=== PATIENT | male | born 1960 | race Caucasian/White ===

== ENCOUNTER 2018-04-07 08:44 | Outpatient (CLI) | payer MEDICARE ==
[2018-04-07] MEDS ORDERED: Lidocaine 2% Jelly 5 ML TUBE ONE (16:05)
[2018-04-07] MEDS ORDERED: Sodium Chloride 0.9% 15 ML NEB ONE (16:05)
--- NOTE | 2018-04-07 16:20 | HP ---
DATE OF SERVICE: 04/07/2018. HISTORY OF PRESENT ILLNESS: Mr. Beni Aviles is a very pleasant 57-year-old gentleman who present s to the Wound Center for evaluation of a venous ulceration of the left medial lower leg. The patien t states that he first experienced a venous ulceration of his left medial lower leg 4 years ago. He states that he was treated for this ulceration at a Wound Center in [place] with an Unna boot. He s tates that treatment with the Unna boot was successful and that he returned to work. He states that because of recurrent deep venous thromboses of the left lower extremity, he was forced out of work. He states that from February to April of last year, he was treated by in [place] for a recurre nt ulceration of the left medial lower leg. He states that again the venous ulceration of his left m edial lower leg healed with treatment with an Unna boot. The patient was referred to the Wound [facility] by Dr. Beni Gallagher. Apparently, the ulceration of the left medial lower leg recurred in 09/2017 and the patient has been wrapping the ulceration with gauze. PAST MEDICAL HISTORY: 1. COPD. 2. 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 3. Arthritis. 4. Hypothyroidism. PAST SURGICAL HISTORY: 1. Appendectomy. 2. Tonsillectomy. 3. Left upper extremity surgery for fracture. 4. Left ankle reconstruction. MEDICATIONS: 1. Cymbalta. 2. Remeron. 3. Duloxetine. 4. Levothyroxine. 5. Prilosec. 6. Seroquel. 7. Crestor. 8. Warfarin. 9. Vitamin D. ALLERGIES: No known diagnosed allergies. SOCIAL HISTORY: Social history is significant for tobacco use of 1/2 pack of cigarettes per day for 20 years. The patient admits to the occasional consumption of alcohol. FAMILY HISTORY: Family history is negative for diabetes mellitus or coronary artery disease. PHYSICAL EXAMINATION: VITAL SIGNS: Temperature 97.6, pulse 87, respirations 19, blood pressure 178/110. GENERAL: A 57-year-old gentleman lying on table in examination room in no acute distress. HEENT: Normocephalic, atraumatic. NECK: No nuchal rigidity. CHEST: Clear to auscultation. CARDIOVASCULAR: Regular rate and rhythm. ABDOMEN: Soft. EXTREMITIES: An ulceration of the left medial lower leg is present, which measures approximately 4.8 x 2.2 cm. Very little granulation tissue is present within the wound margins. Necrotic and nonviab le tissue present within the wound margins was debrided with an excisional full-thickness debridement with the use of a curette. No purulent drainage is associated with the wound. No erythema of the s kin surrounding the wound is present. No maceration of the skin of the periwound is noted. A dorsal is pedis pulse is palpable on the left. No significant edema of the left foot or lower leg is presen t on exam today. Discoloration of the skin of the left lower leg is present secondary to hemosiderin deposition. NEUROLOGIC: Grossly nonfocal. ASSESSMENT AND PLAN: 1. Chronic venous hypertension with ulceration. Silverlon, Webril, and the 3M Coban 2-layer arianne moni system will be applied to the ulceration today. No antibiotics will be prescribed based upon th e appearance of the wound. I will see Mr. Aviles again in one week. The patient understands and is in agreement with the preceding treatment plan. He states he will keep his wrap clean and dry until his followup visit 1 week from today. 2. Chronic obstructive pulmonary disease. 3. 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 The patient states he has b een treated for deep venous thrombosis of the left lower extremity from 1998 to the present. 4. Arthritis. 5. Hypothyroidism.
== END 2018-04-07 08:45 | disposition home or self-care (01) ==
LOC: WCC 08:44
PROVIDERS: ATTEND Family Medicine
DX: I87.312 Chronic venous hypertension (idiopathic) with ulcer of left lower extremity (principal); E03.9 Hypothyroidism, unspecified; M19.90 Unspecified osteoarthritis, unspecified site; J44.9 Chronic obstructive pulmonary disease, unspecified; Z86.718 Personal history of other venous thrombosis and embolism
CPT/HCPCS: A4218

== ENCOUNTER 2018-04-14 07:49 | Outpatient (CLI) | payer MEDICARE ==
--- NOTE | 2018-04-14 15:49 | PRG ---
DATE OF SERVICE: 04/14/2018 HISTORY: Mr. Beni Aviles is a very pleasant 57-year-old gentleman who presents to the Wound Cent er for evaluation of a venous ulceration of the left medial lower leg. The patient stated that he fi rst experienced a venous ulceration of his left medial lower leg 4 years ago. He stated that he was treated for this ulceration at a Wound Center in [place] with an Unna boot. He stated that treatmen t with the Unna boot was successful and that he returned to work. He stated that because of recurren t deep venous thromboses of the left lower extremity, was forced out of work. He stated that from to April of last year, he was treated by in [place] for a recurrent ulceration of the l eft medial lower leg. He stated that again the venous ulceration of his left medial lower leg healed with treatment with an Unna boot. The patient was referred to the Wound Center by Dr. Beni Gallagher . Apparently, the ulceration of the left medial lower leg recurred in 09/2017 and the patient has be en wrapping the ulceration with gauze. After being seen in the Wound Center, the ulceration was adam zurdo with the application of Silverlon, Webril, and 3M Coban 2 layer compression system. PHYSICAL EXAMINATION: VITAL SIGNS: Temperature 97.8, pulse 75, respirations 18, blood pressure 149/84. EXTREMITIES: An ulceration of the left medial lower leg is present which has divided into 2 ulcerati ons measuring approximately 2.6 x 2.0 cm and 1.5 x 2.0 cm. Very little granulation tissue was presen t within the margins of each wound. Necrotic and nonviable tissue present within the margins of each wound was debrided with an excisional full-thickness debridement with the use of a curet. No purule nt drainage is associated with either wound. No erythema of the skin surrounding either wound is pre sent. No maceration of the skin of the periwound of either wound is noted. No significant edema of the left foot or lower leg is present on exam today. Discoloration of the skin of the left lower leg is present secondary to hemosiderin deposition. ASSESSMENT AND PLAN: 1. Chronic venous hypertension with ulceration. As stated above, the ulceration has divided into 2 ulcerations. Silverlon, Webril, and the 3M Coban 2-layer compression system will be applied to both ulcerations today. I will see Mr. Aviles again in one week. 2. Chronic obstructive pulmonary disease. 3. 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 The patient previously stat ed he has been treated for deep venous thrombosis of the left lower extremity from 1998 to the [facility]. 4. Arthritis. 5. Hypothyroidism.
== END 2018-04-14 07:50 | disposition home or self-care (01) ==
LOC: WCC 07:49
PROVIDERS: ATTEND Family Medicine
DX: I87.312 Chronic venous hypertension (idiopathic) with ulcer of left lower extremity (principal); L97.829 Non-pressure chronic ulcer of other part of left lower leg with unspecified severity; J44.9 Chronic obstructive pulmonary disease, unspecified; E03.9 Hypothyroidism, unspecified; M19.90 Unspecified osteoarthritis, unspecified site; Z86.718 Personal history of other venous thrombosis and embolism
CPT/HCPCS: 11042

== ENCOUNTER 2018-04-23 07:43 | Outpatient (CLI) | payer MEDICARE ==
--- NOTE | 2018-04-23 09:02 | PRG ---
DATE OF SERVICE: 04/23/2018 HISTORY: Mr. Beni Aviles is a very pleasant 57-year-old gentleman who presents to the Wound Center for evaluation of a venous ulceration of the left medial lower leg. The patient stated that alyssa barger first experienced a venous ulceration of his left medial lower leg 4 years ago. He stated that he was treated for this ulceration at a Wound Center in [place] with an Unna boot. He stated that adam tment with the Unna boot was successful and that he returned to work. He stated that because of recu rrent deep venous thromboses of the left lower extremity he was forced out of work. He stated that f rom February to April of last year he was treated in [place] for a recurrent ulceration of the left medi al lower leg. He stated that again the venous ulceration of his left medial lower leg healed with tr eatment with an Unna boot. The patient was referred to the Wound Center by Dr. Beni Gallagher. Appar ently, the ulceration of the left medial lower leg recurred in 09/2017 and the patient had been wrapp ing the ulceration with gauze. After being seen in the Wound Center, the ulceration was treated with the application of Silverlon, Webril, and 3M Coban 2 layer compression system. PHYSICAL EXAMINATION: VITAL SIGNS: Temperature 97.8, pulse 84, respirations 18, blood pressure 139/91. EXTREMITIES: An ulceration of the left medial lower leg is present which has divided into 2 ulcerati ons measuring approximately 2.3 x 1.3 cm and 1.6 x 2.4 cm. Very little granulation tissue is present within the margins of each wound. Necrotic and nonviable tissue present within the margins of each wound was debrided with an excisional full-thickness debridement with the use of a curette and scisso rs. No purulent drainage is associated with either wound. No erythema of the skin surrounding eithe r wound is present. No maceration of the skin of the periwound of either wound is noted. A posterio r tibial pulse is easily palpable on the left. No significant edema of the left foot or lower leg is present on exam today. Discoloration of the skin of the left lower leg is present secondary to hemo siderin deposition. ASSESSMENT AND PLAN: 1. Chronic venous hypertension with ulceration. As stated above, the ulceration has divided into 2 ulcerations. Medihoney, 4 x 4's, Webril, and 3M Coban 2-layer compression system will be applied to the ulcerations today. I will see Mr. Aviles again in 1 week. 2. Chronic obstructive pulmonary disease. 3. 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 The patient previously stat ed that he has been treated for deep venous thrombosis of the left lower extremity from 1998 to the [facility]. 4. Arthritis. 5. Hypothyroidism.
[2018-04-23] MEDS ORDERED: Lidocaine 2% Jelly 5 ML TUBE ONE (12:00)
== END 2018-04-23 07:44 | disposition home or self-care (01) ==
LOC: WCC 07:43
PROVIDERS: ATTEND Family Medicine
DX: I87.312 Chronic venous hypertension (idiopathic) with ulcer of left lower extremity (principal); L97.929 Non-pressure chronic ulcer of unspecified part of left lower leg with unspecified severity; J44.9 Chronic obstructive pulmonary disease, unspecified; M19.90 Unspecified osteoarthritis, unspecified site; E03.9 Hypothyroidism, unspecified; Z86.718 Personal history of other venous thrombosis and embolism
CPT/HCPCS: 11042

== ENCOUNTER 2018-04-30 07:55 | Outpatient (CLI) | payer MEDICARE ==
--- NOTE | 2018-04-30 08:42 | PRG ---
DATE OF SERVICE: 04/30/2018 HISTORY: Mr. Beni Aviles is a very pleasant 57-year-old gentleman who presents to the Wound Center for evaluation of a venous ulceration of the left medial lower leg. The patient stated that alyssa barger first experienced a venous ulceration of his left medial lower leg 4 years ago. He stated that he was treated for this ulceration at a Wound Center in [place] with an Unna boot. He stated that adam tment with the Unna boot was successful and that he returned to work. He stated that because of recu rrent deep venous thromboses of the left lower extremity he was forced out of work. He stated that f rom February to April of last year he was treated in [place] for a recurrent ulceration of the left medi al lower leg. He stated that again the venous ulceration of his left medial lower leg healed with tr eatment with an Unna boot. The patient was referred to the Wound Center by Dr. Beni Gallagher. Appar ently, the ulceration of the left medial lower leg recurred in 09/2017 and the patient had been wrapp ing the ulceration with gauze. After being seen in the Wound Center, the ulceration was treated with the application of Silverlon, Webril, and 3M Coban 2 layer compression system. At the time of the p [facility]'s last visit, Medihoney was applied to 2 ulcerations of the left medial lower leg. PHYSICAL EXAMINATION: VITAL SIGNS: Temperature 97.9, pulse 99, respirations 18, blood pressure 168/101. EXTREMITIES: The ulceration of the left medial lower leg has divided into 2 ulcerations measuring ap proximately 1.3 x 1.8 cm and 2.3 x 1.6 cm. Granulation tissue is present within the margins of each wound. Necrotic and nonviable tissue present within the margins of each wound was debrided with an e xcisional full-thickness debridement with the use of a curette. No purulent drainage is associated w ith either wound. No erythema of the skin surrounding either wound is present. No maceration of the skin of the periwound of either wound is noted. No significant edema of the left foot or lower leg is present on exam today. Discoloration of the skin of the left lower leg is present secondary to he mosiderin deposition. ASSESSMENT AND PLAN: 1. Chronic venous hypertension with ulceration. As stated above, the ulceration has divided into 2 ulcerations. Medihoney, 4 x 4s, ABD, Webril, and 3M Coban 2-layer compression system will be applied to the ulcerations today. I will see Mr. Aviles again in 1 week. 2. Chronic obstructive pulmonary disease. 3. 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 The patient previously stat ed that he has been treated for deep venous thrombosis of the left lower extremity from 1998 to the [facility]. 4. Hypothyroidism. 5. Arthritis.
[2018-05-01] MEDS ORDERED: Sodium Chloride 0.9% 15 ML NEB ONE (15:13)
[2018-05-01] MEDS ORDERED: Lidocaine 2% Jelly 5 ML TUBE ONE (15:13)
== END 2018-04-30 07:56 | disposition home or self-care (01) ==
LOC: WCC 07:55
PROVIDERS: ATTEND Family Medicine
DX: I87.312 Chronic venous hypertension (idiopathic) with ulcer of left lower extremity (principal); L97.929 Non-pressure chronic ulcer of unspecified part of left lower leg with unspecified severity; J44.9 Chronic obstructive pulmonary disease, unspecified; E03.9 Hypothyroidism, unspecified; M19.90 Unspecified osteoarthritis, unspecified site; Z86.718 Personal history of other venous thrombosis and embolism

== ENCOUNTER 2018-05-07 08:06 | Outpatient (CLI) | payer MEDICARE ==
--- NOTE | 2018-05-07 09:17 | PRG ---
DATE OF SERVICE: 05/07/2018 HISTORY: Mr. Beni Aviles is a very pleasant 57-year-old gentleman who presents to the Wound Center for evaluation of a venous ulceration of the left medial lower leg. The patient stated that alyssa barger first experienced a venous ulceration of his left medial lower leg 4 years ago. He stated that he was treated for this ulceration at a Wound Center in [place] with an Unna boot. He stated that adam tment with the Unna boot was successful and then he returned to work. He stated that because of recu rrent deep venous thromboses of the left lower extremity, he was forced out of work. He stated that from February to April of last year, he was treated in [place] for a recurrent ulceration of the left me dial lower leg. He stated that again the venous ulceration of his left medial lower leg healed with treatment with an Unna boot. The patient was referred to the Wound Center by Dr. Beni Gallagher. Dennise arently, the ulceration of the left medial lower leg recurred in 09/2017 and the patient had been wra pping the ulceration with gauze. After being seen in the Wound Center, the ulceration was treated wi th the application of Silverlon, Webril, and 3M Coban 2 layer compression system. The patient was al so given a trial of Medihoney for the ulceration of his left medial lower leg. PHYSICAL EXAMINATION: VITAL SIGNS: Temperature 97.6, pulse 97, respirations 17, blood pressure 176/103. EXTREMITIES: The ulceration of the left medial lower leg has divided into 2 ulcerations which measur e approximately 1.5 x 1.2 cm and 2.0 x 1.4 cm. Granulation tissue is present within the margins of e ach wound. Necrotic and nonviable tissue present within the margins of each wound was debrided with an excisional full-thickness debridement with the use of a curette. No purulent drainage is associat ed with either wound. No erythema of the skin surrounding either wound is present. No maceration of the skin of the periwound of either wound is noted. A posterior tibial pulse is easily palpable on the left. No significant edema of the left foot or lower leg is present on exam today. Discoloratio n of the skin of the left lower leg is present secondary to hemosiderin deposition. MatriStem sheet 3 x 3.5 cm was applied to the wound bed of each ulceration followed by Adaptic Touch, a bolster of sa line-moistened gauze, 4 x 4's, Webril, and 3M Coban 2-layer compression system. ASSESSMENT AND PLAN: 1. I will see Mr. Aviles again in one week. At this time, consideration will be given for another placement of MatriStem sheet. 2. Chronic obstructive pulmonary disease. 3. 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 The patient previously stat ed that he has been treated for deep venous thrombosis of the left lower extremity beginning in 1998. 4. Hypothyroidism. 5. Arthritis.
[2018-05-07] MEDS ORDERED: Lidocaine 2% Jelly 5 ML TUBE ONE (14:28)
[2018-05-07] MEDS ORDERED: Sodium Chloride 0.9% 15 ML NEB ONE (14:28)
== END 2018-05-07 08:07 | disposition home or self-care (01) ==
LOC: WCC 08:06
PROVIDERS: ATTEND Family Medicine
DX: I87.2 Venous insufficiency (chronic) (peripheral) (principal); L97.929 Non-pressure chronic ulcer of unspecified part of left lower leg with unspecified severity; J44.9 Chronic obstructive pulmonary disease, unspecified; Z86.718 Personal history of other venous thrombosis and embolism; E03.9 Hypothyroidism, unspecified; M19.90 Unspecified osteoarthritis, unspecified site
CPT/HCPCS: 97139; C5271; Q4166; A4218

== ENCOUNTER 2018-05-14 07:48 | Outpatient (CLI) | payer MEDICARE ==
--- NOTE | 2018-05-14 10:27 | PRG ---
DATE OF SERVICE: 05/14/2018 SUBJECTIVE: Mr. Beni Aviles is a very pleasant 57-year-old gentleman who presents to the [facility] for evaluation of a venous ulceration of the left medial lower leg. The patient stated coni t he first experienced a venous ulceration of his left medial lower leg 4 years ago. He stated that he was treated for this ulceration at a Wound Center in [place] with an Unna boot. He stated that t reatment with the Unna boot was successful and he then returned to work. He stated that because of r ecurrent deep venous thromboses of the left lower extremity, he was forced out of work. He stated th at from February to April of last year, he was treated in [place] for a recurrent ulceration of the left medial lower leg. He stated that again the venous ulceration of his left medial lower leg healed wi th treatment with an Unna boot. The patient was referred to the Wound Center by Dr. Beni Gallagher. Apparently, the ulceration of the left medial lower leg recurred in 09/2017, and the patient had been wrapping the ulceration with gauze. After being seen in the Wound Center, the ulceration was treate d with the application of Silverlon, Webril, and 3M Coban 2-layer compression system. The patient wa s also given a trial of Medihoney for the ulceration of his left medial lower leg. OBJECTIVE: VITAL SIGNS: Temperature 97.6, pulse 56, respirations 16, blood pressure 170/85. EXTREMITIES: The ulceration of the left medial lower leg has divided into 2 ulcerations which measur e approximately 1.1 x 1.5 cm and 2.0 x 1.2 cm. The dimensions of these wounds at the time of the pat ient's last visit were approximately 1.5 x 1.2 cm and 2.0 x 1.4 cm. Granulation tissue is present wi thin the margins of each wound. No purulent drainage is associated with either wound. No erythema o f the skin surrounding either wound is present. No maceration of the skin of the periwound of either wound is noted. A posterior tibial pulse is easily palpable on the left. No significant edema of t he left foot or lower leg is present on exam today. Discoloration of the skin of the left lower leg is present secondary to hemosiderin deposition. MatriStem sheet 3 x 3.5 cm was applied to the wound bed of each ulceration followed by Adaptic touch, a bolster of saline-moistened gauze, 4 x 4's, Webri l, and 3M Coban 2-layer compression system. ASSESSMENT AND PLAN: 1. Chronic venous hypertension with ulceration. MatriStem sheet was applied to the ulceration today . The patient will return to the Wound Center in 1 week for a dressing change of Adaptic touch, 4 x 4's, Webril, and 3M Coban 2-layer compression system. I will see Mr. Aviles again in two weeks. At this time, consideration will be given to another placement of MatriStem sheet. 2. Chronic obstructive pulmonary disease. 3. 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 The patient previously stat ed that he has been treated for deep venous thrombosis of the left lower extremity beginning in 1998. 4. Hypothyroidism. 5. Arthritis.
[2018-05-15] MEDS ORDERED: Sodium Chloride 0.9% 15 ML NEB ONE (18:52)
[2018-05-15] MEDS ORDERED: Lidocaine 2% Jelly 5 ML TUBE ONE (18:52)
== END 2018-05-14 07:49 | disposition home or self-care (01) ==
LOC: WCC 07:48
PROVIDERS: ATTEND Family Medicine
DX: I87.312 Chronic venous hypertension (idiopathic) with ulcer of left lower extremity (principal); L97.829 Non-pressure chronic ulcer of other part of left lower leg with unspecified severity; J44.9 Chronic obstructive pulmonary disease, unspecified; Z86.718 Personal history of other venous thrombosis and embolism; E03.9 Hypothyroidism, unspecified; M19.90 Unspecified osteoarthritis, unspecified site
CPT/HCPCS: A4218; Q4166-KX-JC

== ENCOUNTER 2018-05-22 09:24 | Outpatient (CLI) | payer MEDICARE ==
[2018-05-25] MEDS ORDERED: Sodium Chloride 0.9% 15 ML NEB ONE (13:36)
== END 2018-05-22 09:25 | disposition home or self-care (01) ==
LOC: WCC 09:24
PROVIDERS: ATTEND Family Medicine
DX: I87.312 Chronic venous hypertension (idiopathic) with ulcer of left lower extremity (principal); L97.829 Non-pressure chronic ulcer of other part of left lower leg with unspecified severity
CPT/HCPCS: 29581; A4218

== ENCOUNTER 2018-06-04 15:52 | Outpatient (CLI) | payer MEDICARE ==
--- NOTE | 2018-06-04 19:01 | PRG ---
DATE OF SERVICE: 06/04/2018 SUBJECTIVE: Mr. Beni Aviles is a very pleasant 57-year-old gentleman who presents to the [facility] for evaluation of a venous ulceration of the left medial lower leg. The patient stated coni t he first experienced a venous ulceration of his left medial lower leg 4 years ago. He stated that he was treated for this ulceration at the Wound Center in [place] with an Unna boot. He stated that treatment with the Unna boot was successful and he then returned to work. He stated that because of recurrent deep venous thromboses of the left lower extremity, he was forced out of work. He stated that from February to April of last year, he was treated in [place] for a recurrent ulceration of the le ft medial lower leg. He stated that again the venous ulceration of his left medial lower leg healed with treatment with an Unna boot. The patient was referred to the Wound Center by Dr. Beni Gallagher. Apparently, the ulceration of the left medial lower leg recurred in 09/2017, and the patient had be en wrapping the ulceration with gauze. After being seen in the Wound Center, the ulceration was adam zurdo with the application of Silverlon, Webril, and 3M Coban 2-layer compression system. The patient was also given a trial of Medihoney for the ulceration of his left medial lower leg. PHYSICAL EXAMINATION: VITAL SIGNS: Temperature 97.6, pulse 80, respirations 21, blood pressure 138/91. EXTREMITIES: The ulceration of the left medial lower leg has divided into 2 ulcerations, which measu red approximately 0.9 x 1.5 cm and 1.7 x 1.2 cm. The dimensions of these wounds [facility] approximately 1.1 x 1.5 cm and 1.7 x 1.2 cm. Granulation tissue is present within the margins of each wound. Necrotic and nonviable tissue present within the margins of each w ound was debrided with an excisional full-thickness debridement with the use of a curette. No purule nt drainage is associated with either wound. No erythema of the skin surrounding either wound is pre sent. No maceration of the skin of the periwound of either wound is noted. No significant edema of the left foot or lower leg is present on exam today. Discoloration of the skin of the left lower leg is present secondary to hemosiderin deposition. MatriStem sheet 3 x 3.5 cm was applied to the wound bed of each ulceration followed by Adaptic touch, a bolster of saline-moistened gauze, 4 x 4's, Webr il, and 3M Coban 2-layer compression system. ASSESSMENT AND PLAN: 1. Chronic venous hypertension with ulceration. MatriStem sheet was applied to the ulceration today . The patient is to return to the Wound Center in 1 week. At this time, consideration will be given to another placement of MatriStem sheet. 2. Chronic obstructive pulmonary disease. 3. 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 The patient previously stat ed that he has been treated for deep venous thrombosis of the left lower extremity beginning in 1998. 4. Hypothyroidism. 5. Arthritis.
== END 2018-06-04 15:53 | disposition home or self-care (01) ==
LOC: WCC 15:52
PROVIDERS: ATTEND Family Medicine
DX: I87.312 Chronic venous hypertension (idiopathic) with ulcer of left lower extremity (principal); L97.923 Non-pressure chronic ulcer of unspecified part of left lower leg with necrosis of muscle; J44.9 Chronic obstructive pulmonary disease, unspecified; E03.9 Hypothyroidism, unspecified; M19.90 Unspecified osteoarthritis, unspecified site; Z86.718 Personal history of other venous thrombosis and embolism
CPT/HCPCS: C5271

== ENCOUNTER 2018-06-11 10:55 | Outpatient (CLI) | payer MEDICARE ==
--- NOTE | 2018-06-11 15:29 | PRG ---
DATE OF SERVICE: 06/11/2018 HISTORY: Mr. Beni Aviles is a very pleasant 57-year-old gentleman, who presents to the Wound Center for evaluation of a venous ulceration of the left medial lower leg. After being seen in the Wound Center, the ulceration was treated with the application of Silverlon, Webril, and the 3M Coban 2-layer compression system. The patient was also given a trial of Medihoney for the ulceration of hi s left medial lower leg. Currently, the patient is receiving treatment with MatriStem sheet. PHYSICAL EXAMINATION: VITAL SIGNS: Temperature 97.9, pulse 82, respirations 20, blood pressure 158/95. EXTREMITIES: The ulceration of the left medial lower leg has divided into 2 ulcerations, which measu re approximately 1.0 x 1.0 cm and 1.0 x 1.2 cm. Granulation tissue was present within the margins of each wound. Necrotic and nonviable tissue present within the margins of each wound was debrided wit h an excisional full-thickness debridement with the use of a curette. No purulent drainage is associ ated with either wound. No erythema of the skin surrounding either wound is present. No maceration of the skin of the periwound of either wound is noted. A posterior tibial pulse is easily palpable o n the left. No significant edema of the left foot or lower leg is present on exam today. Discolorat ion of the skin of the left lower leg is present secondary to hemosiderin deposition. MatriStem shee t 3 x 3.5 cm was applied to the wound bed of each ulceration followed by Adaptic touch, a bolster of saline-moistened gauze, 4 x 4's, Webril, and the 3M Coban 2-layer compression system. ASSESSMENT AND PLAN: 1. Chronic venous hypertension with ulceration. MatriStem sheet was applied to the ulceration today . The patient is to return to the Wound Center in 1 week. At this time, consideration will be given to another placement of MatriStem sheet. 2. Chronic obstructive pulmonary disease. 3. 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 The patient previously stat ed that he has been treated for deep venous thrombosis of the left lower extremity, beginning in 1998 . 4. Hypothyroidism. 5. Arthritis.
== END 2018-06-11 10:56 | disposition home or self-care (01) ==
LOC: WCC 10:55
PROVIDERS: ATTEND Family Medicine
DX: I87.312 Chronic venous hypertension (idiopathic) with ulcer of left lower extremity (principal); L97.929 Non-pressure chronic ulcer of unspecified part of left lower leg with unspecified severity; J44.9 Chronic obstructive pulmonary disease, unspecified; E03.9 Hypothyroidism, unspecified; M19.90 Unspecified osteoarthritis, unspecified site; Z86.718 Personal history of other venous thrombosis and embolism
CPT/HCPCS: C5271

== ENCOUNTER 2018-06-19 09:02 | Outpatient (CLI) | payer MEDICARE ==
--- NOTE | 2018-06-19 10:16 | PRG ---
DATE OF SERVICE: 06/19/2018 HISTORY: Mr. Beni Aviles is a very pleasant 57-year-old gentleman who presents to the Wound Center for evaluation of a venous ulceration of the left medial lower leg. After being seen in the [facility] the ulceration was treated with the application of Silverlon, Webril, and 3M Coban 2 laye r compression system. The patient was also given a trial of Medihoney for the ulceration of his left medial lower leg. Presently, the patient is receiving treatment with MatriStem sheet. PHYSICAL EXAMINATION: VITAL SIGNS: Temperature 97.7, pulse 121, respirations 20, blood pressure 151/106. EXTREMITIES: The ulceration of the left medial lower leg has divided into 2 ulcerations which measur e approximately 1.0 x 1.0 cm and 0.5 x 0.5 cm. Necrotic and nonviable tissue present within the ravindra ins of each wound was debrided with an excisional full-thickness debridement with the use of a curett e and scissors. No purulent drainage is associated with either wound. No erythema of the skin surro unding either wound is present. No maceration of the skin of the periwound of either wound is noted. A posterior tibial pulse is easily palpable on the left. No significant edema of the left foot or lower leg is present on exam today. Discoloration of the skin of the left lower leg is present secon alida to hemosiderin deposition. MatriStem sheet 3 x 3.5 cm was applied to the wound bed of each ulce ration followed by Adaptic touch, a bolster of saline-moistened gauze, 4 x 4's, Webril, and 3M Coban 2 layer compression system. ASSESSMENT AND PLAN: 1. Chronic venous hypertension with ulceration. MatriStem sheet was applied to the ulceration today . I will see Mr. Aviles again in 1 week. 2. Chronic obstructive pulmonary disease. 3. 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 The patient previously stat ed that he has been treated for deep venous thrombosis of the left lower extremity beginning in 1998. 4. Hypothyroidism. 5. Arthritis.
== END 2018-06-19 09:03 | disposition home or self-care (01) ==
LOC: WCC 09:02
PROVIDERS: ATTEND Family Medicine
DX: I87.312 Chronic venous hypertension (idiopathic) with ulcer of left lower extremity (principal); J44.9 Chronic obstructive pulmonary disease, unspecified; E03.9 Hypothyroidism, unspecified; M19.90 Unspecified osteoarthritis, unspecified site; Z86.718 Personal history of other venous thrombosis and embolism
CPT/HCPCS: 97139; C5271; Q4166

== ENCOUNTER 2018-06-26 11:27 | Outpatient (CLI) | payer MEDICARE ==
--- NOTE | 2018-06-26 12:01 | PRG ---
DATE OF SERVICE: 06/26/2018 SUBJECTIVE: Mr. Beni Aviles is a very pleasant 57-year-old gentleman who presents to the [facility] for evaluation of a venous ulceration of the left medial lower leg. After being seen in [facility], the ulceration was treated with the application of Silverlon, Webril, and 3M Coban 2- layer compression system. The patient was also given a trial of Medihoney for the ulceration of his left medial lower leg. Presently, the patient is receiving treatment with MatriStem sheet. OBJECTIVE: VITAL SIGNS: Temperature 97.5, pulse 67, respirations 20, blood pressure 163/91. EXTREMITIES: The ulceration of the left medial lower leg has divided into 2 ulcerations which measur e approximately 1.2 x 0.9 cm and 0.9 x 1.0 cm. Granulation tissue is present within the margins of e ach wound. No purulent drainage is associated with either wound. No erythema of the skin surroundin g either wound is present. No maceration of the skin of the periwound of either wound is noted. A p osterior tibial pulse is easily palpable on the left. No significant edema of the left foot or lower leg is present on exam today. Discoloration of the skin of the left lower leg is present secondary to hemosiderin deposition. ASSESSMENT AND PLAN: 1. Chronic venous hypertension with ulceration. The patient has completed a course of treatment wit h MatriStem sheet. Adaptic Touch, Webril, and 3M Coban 2-layer compression system will be applied to the ulcerations today. I will see Mr. Aviles again in 1 week. 2. Chronic obstructive pulmonary disease. 3. 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 The patient previously stat ed that he had been treated for deep venous thrombosis of the left lower extremity beginning in 1998. 4. Hypothyroidism. 5. Arthritis.
== END 2018-06-26 11:28 | disposition home or self-care (01) ==
LOC: WCC 11:27
PROVIDERS: ATTEND Family Medicine
DX: I87.312 Chronic venous hypertension (idiopathic) with ulcer of left lower extremity (principal); L97.229 Non-pressure chronic ulcer of left calf with unspecified severity; E03.9 Hypothyroidism, unspecified; M19.90 Unspecified osteoarthritis, unspecified site; Z86.718 Personal history of other venous thrombosis and embolism
CPT/HCPCS: 97602

== ENCOUNTER 2018-07-03 11:22 | Outpatient (CLI) | payer MEDICARE ==
--- NOTE | 2018-07-03 11:50 | PRG ---
DATE OF SERVICE: 07/03/2018 HISTORY: Mr. Beni Aviles is a very pleasant 57-year-old gentleman who presents to the Wound Center for evaluation of a venous ulceration of the left medial lower leg. After being seen in the [facility], the ulceration was treated with the application of Silverlon, Webril and 3M Coban 2-laye r compression system. The patient was also given a trial of Medihoney for the ulceration of his left medial lower leg. The patient has also received treatment with MatriStem sheet. PHYSICAL EXAMINATION: VITAL SIGNS: Temperature 97.6, pulse 66, respirations 18, blood pressure 143/91. EXTREMITIES: The ulceration of the left medial lower leg has divided into 2 ulcerations, which measu re approximately 1.1 x 0.8 cm and 0.7 x 1.0 cm. Granulation tissue is present within the margins of each wound. No purulent drainage is associated with either wound. No erythema of the skin surroundi ng either wound is present. No maceration of the skin of the periwound of either wound is noted. A dorsalis pedis pulse is palpable on the left. No significant edema of the left foot or lower leg is present on exam today. Discoloration of the skin of the left lower leg is present secondary to hemos iderin deposition. ASSESSMENT AND PLAN: 1. Chronic venous hypertension with ulceration. The patient has completed a course of treatment wit h MatriStem sheet. Adaptic, 4x4s, Webril and a 3M Coban 2-layer compression system will be applied t o the ulcerations today. I will see Mr. Aviles again in 1 week. 2. Chronic obstructive pulmonary disease. 3. 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 The patient previously stat ed that he had been treated for deep venous thrombosis of the left lower extremity beginning in 1998. 4. Hypothyroidism. 5. Arthritis.
[2018-07-03] MEDS ORDERED: Sodium Chloride 0.9% 15 ML NEB ONE (12:00)
== END 2018-07-03 11:23 | disposition home or self-care (01) ==
LOC: WCC 11:22
PROVIDERS: ATTEND Family Medicine
DX: I87.312 Chronic venous hypertension (idiopathic) with ulcer of left lower extremity (principal); L97.829 Non-pressure chronic ulcer of other part of left lower leg with unspecified severity; J44.9 Chronic obstructive pulmonary disease, unspecified; E03.9 Hypothyroidism, unspecified; M19.90 Unspecified osteoarthritis, unspecified site; Z86.718 Personal history of other venous thrombosis and embolism
CPT/HCPCS: 29581; A4218

== ENCOUNTER 2018-07-09 11:19 | Outpatient (CLI) | payer MEDICARE ==
--- NOTE | 2018-07-09 12:36 | PRG ---
DATE OF SERVICE: 07/09/2018 HISTORY: Mr. Beni Aviles is a very pleasant 57-year-old gentleman who presents to the Wound Center for evaluation of a venous ulceration of the left medial lower leg. [facility], the ulceration was treated with the application of Silverlon, Webril, and 3M Coban 2-lay er compression system. The patient was also given a trial of Medihoney for the ulceration of his lef t medial lower leg. In addition, the patient has received treatment with MatriStem sheet. OBJECTIVE: VITAL SIGNS: Temperature 97.7, pulse 71, respirations 21, blood pressure 136/86. EXTREMITIES: The ulceration of the left medial lower leg has divided into 2 ulcerations which measur e approximately 0.9 x 0.8 cm and 0.5 x 0.5 cm. Granulation tissue is present within the margins of e ach wound. No purulent drainage is associated with either wound. No erythema of the skin surroundin g either wound is present. No maceration of the skin of the periwound of either wound is noted. A p osterior tibial pulse is easily palpable on the left. No significant edema of the left foot or lower leg is present on exam today. Discoloration of the skin of the left lower leg is present secondary to hemosiderin deposition. ASSESSMENT AND PLAN: 1. Chronic venous hypertension with ulceration. The patient has completed a course of treatment wit h MatriStem sheet, Adaptic, 4 x 4s, Webril, and 3M Coban 2-layer compression system will be applied t o the ulcerations today. The patient is to return to the Wound Center for a dressing change in one w false pass of Adaptic, 4 x 4s, Webril, and 3M Coban 2-layer compression system. I will see Mr. Traci gandhi bennie in two weeks. The patient has been asked to bring his compression garments with him to his followu p visit in 2 weeks. 2. Chronic obstructive pulmonary disease. 3. 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 The patient previously stat ed that he had been treated for deep venous thrombosis of the left lower extremity beginning in 1998. 4. Hypothyroidism. 5. Arthritis.
[2018-07-09] MEDS ORDERED: Lidocaine 2% Jelly 5 ML TUBE ONE (16:48)
[2018-07-09] MEDS ORDERED: Sodium Chloride 0.9% 15 ML NEB ONE (16:48)
== END 2018-07-09 11:20 | disposition home or self-care (01) ==
LOC: WCC 11:19
PROVIDERS: ATTEND Family Medicine
DX: I87.312 Chronic venous hypertension (idiopathic) with ulcer of left lower extremity (principal); L97.929 Non-pressure chronic ulcer of unspecified part of left lower leg with unspecified severity; J44.9 Chronic obstructive pulmonary disease, unspecified; E03.9 Hypothyroidism, unspecified; M19.90 Unspecified osteoarthritis, unspecified site; Z86.718 Personal history of other venous thrombosis and embolism
CPT/HCPCS: A4218

== ENCOUNTER 2018-07-24 07:53 | Outpatient (CLI) | payer MEDICARE ==
--- NOTE | 2018-07-24 09:02 | PRG ---
DATE OF SERVICE: 07/24/2018 HISTORY: Mr. Beni Aviles is a very pleasant 57-year-old gentleman who presents to the Wound Center for evaluation of a venous ulceration of the left medial lower leg. After being seen in the [facility], the ulceration was treated with the application of Silverlon, Webril, and 3M Coban 2 lay er compression system. The patient was also given a trial of Medihoney for the ulceration of his lef t medial lower leg. In addition, the patient has completed a course of treatment with Agnes jones. PHYSICAL EXAMINATION: VITAL SIGNS: Temperature 97.9, pulse 65, respirations 16, blood pressure 148/87. EXTREMITIES: The ulceration of the left medial lower leg has divided into 2 ulcerations which measur es approximately 0.9 x 0.6 cm and 0.4 x 0.5 cm. Granulation tissue is present within the margins of each wound. No purulent drainage is associated with either wound. No erythema of the skin surroundi ng either wound is present. No maceration of the skin of the periwound of either wound is noted. No significant edema of the left foot or lower leg is present on exam today. Discoloration of the skin of the left lower leg is present secondary to hemosiderin deposition. ASSESSMENT AND PLAN: 1. Chronic venous hypertension with ulceration. The patient has completed a course of treatment wit alyssa black. Promogran, Adaptic, Webril, and 3M Coban 2-layer compression system will be appli ed to the ulcerations today. I will see Mr. Aviles again in one week. 2. Chronic obstructive pulmonary disease. 3. 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 The patient previously stat ed that he had been treated for deep venous thromboses of the left lower extremity beginning in 1998. 4. Hypothyroidism. 5. Arthritis.
[2018-07-24] MEDS ORDERED: Sodium Chloride 0.9% 15 ML NEB ONE (12:36)
== END 2018-07-24 07:54 | disposition home or self-care (01) ==
LOC: WCC 07:53
PROVIDERS: ATTEND Family Medicine
DX: I87.312 Chronic venous hypertension (idiopathic) with ulcer of left lower extremity (principal); L97.929 Non-pressure chronic ulcer of unspecified part of left lower leg with unspecified severity; J44.9 Chronic obstructive pulmonary disease, unspecified; E03.9 Hypothyroidism, unspecified; M19.90 Unspecified osteoarthritis, unspecified site; Z86.718 Personal history of other venous thrombosis and embolism
CPT/HCPCS: A4218

== ENCOUNTER 2018-07-31 08:20 | Outpatient (CLI) | payer MEDICARE ==
--- NOTE | 2018-07-31 10:26 | PRG ---
DATE OF SERVICE: 07/31/2018 HISTORY: Mr. Beni Aviles is a very pleasant 57-year-old gentleman who presents to the Wound Center for evaluation of a venous ulceration of the left medial lower leg. After being seen in the [facility], the ulceration was treated with the application of Silverlon, Webril and the 3M Coban 2- layer compression system. The patient was also given a trial of Medihoney for the ulceration of his left medial lower leg. In addition, the patient completed a course of treatment with MatriStem sheet . At the time of the patient's last visit, Promogran, Adaptic, Webril and the 3M Coban 2-layer compr ession system were applied to the left medial lower leg. PHYSICAL EXAMINATION: VITAL SIGNS: Temperature 97.4, pulse 85, respirations 22, blood pressure 139/88. EXTREMITIES: The ulceration of the left medial lower leg has divided into 2 ulcerations, which measu re approximately 0.9 x 0.7 cm and 0.4 x 0.3 cm. Granulation tissue is present within the margins of each wound. No purulent drainage is associated with either wound. No erythema of the skin surroundi ng either wound is present. No maceration of the skin of the periwound of either wound is noted. No significant edema of the left foot or lower leg is present on exam today. Discoloration of the skin of the left lower leg is present secondary to hemosiderin deposition. ASSESSMENT AND PLAN: 1. Chronic venous hypertension with ulceration. The patient has completed a course of treatment wit h MatriStem sheet. Xeroform gauze, Webril and the 3M Coban 2-layer compression system will be applie d to the ulcerations today. I will see Mr. Aviles again in one week. 2. Chronic obstructive pulmonary disease. 3. 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 The patient previously stat ed that he had been treated for deep venous thromboses of the left lower extremity beginning in 1998. 4. Hypothyroidism. 5. Arthritis.
== END 2018-07-31 08:21 | disposition home or self-care (01) ==
LOC: WCC 08:20
PROVIDERS: ATTEND Family Medicine
DX: I87.312 Chronic venous hypertension (idiopathic) with ulcer of left lower extremity (principal); J44.9 Chronic obstructive pulmonary disease, unspecified; E03.9 Hypothyroidism, unspecified; M19.90 Unspecified osteoarthritis, unspecified site; Z86.718 Personal history of other venous thrombosis and embolism
CPT/HCPCS: 29581

== ENCOUNTER 2018-08-14 08:30 | Outpatient (CLI) | payer MEDICARE ==
--- NOTE | 2018-08-14 09:57 | PRG ---
DATE OF SERVICE: 08/14/2018 HISTORY: Mr. Beni Aviles is a very pleasant 57-year-old gentleman who presents to the Wound Center for evaluation of a venous ulceration of the left medial lower leg. After being seen in the [facility], the ulceration was treated with the application of Silverlon, Webril, and 3M Coban 2 lay er compression system. The patient was also given a trial of Medihoney for the ulceration of his lef t medial lower leg. In addition, the patient completed a course of treatment with MatriStem sheet. The ulceration has also been treated with Promogran. At the time of the patient's last visit, Xerofo rm gauze, Webril, and 3M Coban 2 layer compression system were applied to the left medial lower leg. PHYSICAL EXAMINATION: VITAL SIGNS: Temperature 97.7, pulse 58, respirations 20, blood pressure 138/84. EXTREMITIES: Only 1 ulceration of the left medial lower leg remains which measures approximately 0.6 x 0.4 cm. Granulation tissue is present within the wound margins. No purulent drainage is associat ed with the wound. No erythema of the skin surrounding the wound is present. No maceration of the s kin of the periwound is noted. No significant edema of the left foot or lower leg is present on exam today. Discoloration of the skin of the left lower leg is present secondary to hemosiderin depositi on. A pedal pulse is also palpable on the left. ASSESSMENT AND PLAN: 1. Chronic venous hypertension with ulceration. The patient has completed a course of treatment wit h MatriStem sheet. Xeroform gauze, Webril, and 3M Coban 2-layer compression system will be applied t o the remaining ulceration today. I will see Mr. Aviles again in one week. 2. Chronic obstructive pulmonary disease. 3. History of recurrent deep venous thromboses of the left lower extremity. The patient previously stated that he had been treated for deep venous thromboses of the left lower extremity beginning in . 4. Hypothyroidism. 5. Arthritis.
[2018-08-14] MEDS ORDERED: Sodium Chloride 0.9% 15 ML NEB ONE (20:15)
== END 2018-08-14 08:31 | disposition home or self-care (01) ==
LOC: WCC 08:30
PROVIDERS: ATTEND Family Medicine
DX: I87.312 Chronic venous hypertension (idiopathic) with ulcer of left lower extremity (principal); L97.829 Non-pressure chronic ulcer of other part of left lower leg with unspecified severity; J44.9 Chronic obstructive pulmonary disease, unspecified; E03.9 Hypothyroidism, unspecified; M19.90 Unspecified osteoarthritis, unspecified site; Z86.718 Personal history of other venous thrombosis and embolism
CPT/HCPCS: 29581; A4218

== ENCOUNTER 2018-08-21 09:48 | Outpatient (CLI) | payer MEDICARE ==
[2018-08-21] MEDS ORDERED: Lidocaine 2% Jelly 5 ML TUBE ONE (11:11)
[2018-08-21] MEDS ORDERED: Sodium Chloride 0.9% 15 ML NEB ONE (11:11)
--- NOTE | 2018-08-21 11:52 | PRG ---
DATE OF SERVICE: 08/21/2018 HISTORY: Mr. Beni Aviles is a very pleasant 57-year-old gentleman who presents to the Wound Cent er for evaluation of a venous ulceration of the left medial lower leg. After being seen in the Wound Center, the ulceration was treated with the application of Silverlon, Webril, and 3M Coban 2 layer c ompression system. The patient was also given a trial of Medihoney for the ulceration of his left me dial lower leg. In addition, the patient completed a course of treatment with MatriStem sheet. The ulceration has also been treated with Promogran. Most recently, the patient has been receiving dress ing changes of Xeroform gauze, Webril, and 3M Coban 2 layer compression system on a weekly basis. PHYSICAL EXAMINATION: VITAL SIGNS: Temperature 97.5, pulse 61, respirations 18, blood pressure 148/77. EXTREMITIES: Only 1 ulceration of the left medial lower leg remains which measures approximately 0.8 x 0.6 cm. The dimensions of the wound at the time of the patient's visit on 08/14/2018 were approxi mately 0.6 x 0.4 cm. Granulation tissue is present within the wound margins. Nonviable tissue prese nt within the wound margins was debrided with an excisional full-thickness debridement. No purulent drainage is associated with the wound. No cellulitis of the left lower leg is appreciated. No macer ation of the skin of the periwound is noted. No significant edema of the left foot or lower leg is p resent on exam today. Discoloration of the skin of the left lower leg is present secondary to hemosi amber deposition. A pedal pulse is also palpable on the left. Hyalomatrix was applied to the wound bed of the ulceration followed by Adaptic, Webril, and 3M Coban 2 layer compression system. ASSESSMENT AND PLAN: 1. Chronic venous hypertension with ulceration. The patient has completed a course of treatment wit h MatriStem sheet. Because the ulceration has increased in its dimensions since the patient's last v isit, Hyalomatrix was applied to the wound bed today followed by Adaptic, Webril, and 3M Coban 2 laye r compression system. The patient will discontinue the compression wrap in 1 week and at this time b egin dressing changes in conjunction with the use of his compression stocking or an Corbin bandage for c ompression. Mr. Aviles understands and is in agreement with the preceding treatment plan. He will be discharged from clinic today with followup on a p.r.n. basis. 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 2. Chronic obstructive pulmonary disease. 3. History of recurrent deep venous thromboses of the left lower extremity. The patient previously stated that he had been treated for deep venous thromboses of the left lower extremity beginning in . 4. Hypothyroidism. 5. Arthritis.
== END 2018-08-21 09:49 | disposition home or self-care (01) ==
LOC: WCC 09:48
PROVIDERS: ATTEND Family Medicine
DX: I87.312 Chronic venous hypertension (idiopathic) with ulcer of left lower extremity (principal); L97.929 Non-pressure chronic ulcer of unspecified part of left lower leg with unspecified severity; J44.9 Chronic obstructive pulmonary disease, unspecified; E03.9 Hypothyroidism, unspecified; M19.90 Unspecified osteoarthritis, unspecified site; Z86.718 Personal history of other venous thrombosis and embolism

== ENCOUNTER 2018-09-29 07:55 | Outpatient (CLI) | payer MEDICARE ==
--- NOTE | 2018-09-29 09:00 | PRG ---
DATE OF SERVICE: 09/29/2018 HISTORY: Mr. Beni Aviles is a very pleasant 57-year-old gentleman who presents to the Wound Cent er for evaluation of multiple venous ulcerations of the left lower leg. The patient was seen in the Wound Center on 08/21/2018. At this time, the patient had only one small ulceration of the left medi al lower leg. The patient states he had a recurrence of venous ulcerations of the left lower leg aft er standing for long periods of time during the course of his work. The patient reports undergoing v enous ablation on 2 occasions in the past. The patient also reports a significant degree of pain ass ociated with his ulcerations. PHYSICAL EXAMINATION: VITAL SIGNS: Temperature 96.8, pulse 62, respirations 18, blood pressure 126/77. EXTREMITIES: Three ulcerations of the left lower leg are present, which measure approximately 4.5 x 3.0 cm, 3.5 x 3.2 cm and 4.5 x 6.0 cm. Granulation tissue is present within the margins of each woun d. No purulent drainage is associated with any of the wounds. No cellulitis of the left lower leg i s appreciated. No maceration of the skin of the periwound of any of the wounds is noted. A posterio r tibial pulse is easily palpable on the left. Mild to moderate edema of the left foot and lower leg is present on exam today. ASSESSMENT AND PLAN: 1. Chronic venous hypertension with ulcerations. Xeroform gauze, ABDs, Webril, and the 3M Coban 2-l kaleb compression system will be applied to the ulcerations today. I will see Mr. Aviles again in on e week. The patient has also been given a prescription for Ultram. 2. Lymphedema tarda. Discoloration of the skin of the left lower leg is present secondary to hemosi amber deposition. Arrangements will be made for the initiation of in-home lymphedema therapy. The p atient will also be referred for evaluation for repeat venous ablation on the left. 3. Chronic obstructive pulmonary disease. 4. History of recurrent deep venous thromboses of the left lower extremity. 5. Hypothyroidism. 6. Arthritis.
[2018-09-29] MEDS ORDERED: Sodium Chloride 0.9% 15 ML NEB ONE (20:00)
[2018-09-29] MEDS ORDERED: Lidocaine 2% Jelly 30 GM TUBE ONE (20:00)
== END 2018-09-29 07:56 | disposition home or self-care (01) ==
LOC: WCC 07:55
PROVIDERS: ATTEND Family Medicine
DX: I87.312 Chronic venous hypertension (idiopathic) with ulcer of left lower extremity (principal); L97.929 Non-pressure chronic ulcer of unspecified part of left lower leg with unspecified severity; J44.9 Chronic obstructive pulmonary disease, unspecified; I89.0 Lymphedema, not elsewhere classified; E03.9 Hypothyroidism, unspecified; M19.90 Unspecified osteoarthritis, unspecified site; Z86.718 Personal history of other venous thrombosis and embolism
CPT/HCPCS: 29581; A4218

== ENCOUNTER 2018-10-06 08:12 | Outpatient (CLI) | payer MEDICARE ==
--- NOTE | 2018-10-06 09:12 | PRG ---
DATE OF SERVICE: 10/06/2018 HISTORY: Mr. Beni Aviles is a very pleasant 57-year-old gentleman who presents to the Wound Center for evaluation of multiple venous ulcerations of the left lower leg. When the patient was see n in the Wound Center on 08/21/2018, the patient had only one small ulceration of the left medial low er leg. The patient stated that he had a recurrence of venous ulcerations of the left lower leg afte r standing for long periods of time during the course of his work. The patient reported undergoing v enous ablation on 2 occasions in the past. Again today, Mr. Aviles reports a significant degree of pain associated with his ulcerations. PHYSICAL EXAMINATION: VITAL SIGNS: Temperature 97.6, pulse 76, respirations 18, blood pressure 129/73. EXTREMITIES: Four ulcerations of the left lower leg are present, which measure approximately 3.0 x 4 .2 cm, 4.0 x 2.9 cm, 1.1 x 1.1 cm and 5.5 x 3.8 cm. Granulation tissue is present within the margins of each wound. No purulent drainage is associated with any of the wounds. No cellulitis of the lef t lower leg is appreciated. No maceration of the skin of the periwound of any of the wounds is noted . No significant edema of the left foot or lower leg is present on exam today. Discoloration of the wound bed of one of the left medial lower leg wounds is present. The wound bed has a green discolor ation. ASSESSMENT AND PLAN: 1. Chronic venous hypertension with ulcerations. Medihoney, 4x4s, ABDs, Webril and the 3M Coban 2-l kaleb compression system will be applied to the ulcerations today. I will see Mr. Aviles again in on e week. The patient was previously given a prescription for Ultram. 2. Lymphedema tarda. Discoloration of the skin of the left lower leg is present secondary to hemosi amber deposition. Arrangements will be made for the initiation of in-home lymphedema therapy. The p atient has been referred for evaluation for repeat venous ablation on the left. 3. Chronic obstructive pulmonary disease. 4. History of recurrent deep venous thromboses of the left lower extremity. 5. Hypothyroidism. 6. Arthritis.
[2018-10-06] MEDS ORDERED: Sodium Chloride 0.9% 15 ML NEB ONE (15:00)
== END 2018-10-06 08:13 | disposition home or self-care (01) ==
LOC: WCC 08:12
PROVIDERS: ATTEND Family Medicine
DX: I87.312 Chronic venous hypertension (idiopathic) with ulcer of left lower extremity (principal); L97.929 Non-pressure chronic ulcer of unspecified part of left lower leg with unspecified severity; I89.0 Lymphedema, not elsewhere classified; J44.9 Chronic obstructive pulmonary disease, unspecified; E03.9 Hypothyroidism, unspecified; M19.90 Unspecified osteoarthritis, unspecified site; Z86.718 Personal history of other venous thrombosis and embolism
CPT/HCPCS: A4218

== ENCOUNTER 2018-10-14 07:53 | Outpatient (CLI) | payer MEDICARE ==
[2018-10-14] MEDS ORDERED: Sodium Chloride 0.9% 15 ML NEB ONE (08:40)
== END 2018-10-14 07:54 | disposition home or self-care (01) ==
LOC: WCC 07:53
PROVIDERS: ATTEND Family Medicine
DX: I87.312 Chronic venous hypertension (idiopathic) with ulcer of left lower extremity (principal); L97.929 Non-pressure chronic ulcer of unspecified part of left lower leg with unspecified severity
CPT/HCPCS: 29581; 87070; 87077; 87186; 87205; A4218

== ENCOUNTER → 2018-10-22 | Outpatient (CLI) | payer MEDICARE ==
[~2018-10-22] MED LIST: Sodium Chloride 0.9% 15 ML NEB ONE
--- NOTE | 2018-10-22 18:54 | PRG ---
DATE OF SERVICE: 10/22/2018 HISTORY: Mr. Beni Aviles is a very pleasant 57-year-old gentleman, who presents to the wound center for evaluation of multiple venous ulcerations of the left lower leg. When the patient was seen in the wound center on 08/21/2018, he had only one small ulceration of the left medial lower leg. The patient stated that he had a recurrence of venous ulcerations of the left lower leg after standing for long periods of time during the course of his work. The patient reported undergoing venous ablation on 2 occasions in the past. Today, the patient again reports a significant degree of pain associated with his ulcerations. PHYSICAL EXAMINATION: VITAL SIGNS: Temperature 98.2, pulse 78, respirations 18, and blood pressure 112/71. EXTREMITIES: Four ulcerations of the left lower leg are present, which measured approximately 0.9 x 1.2 cm, 3.0 x 2.0 cm, 3.5 x 2.2 cm, and 3.0 x 5.5 cm. Granulation tissue was present within the margins of each wound. No purulent drainage is associated with any of the wounds. No cellulitis of the left lower leg is appreciated. No maceration of the skin of the periwound of any of the wounds is noted. No significant edema of the left foot or lower leg is present on exam today. ASSESSMENT AND PLAN: 1. Chronic venous hypertension with ulcerations. Silverlon, ABDs, Webril, and 3M Coban 2 Layer Compression System will be applied to the ulcerations today. I will see Mr. Aviles again in 1 week. 2. Lymphedema tarda. Discoloration of the skin of the left lower leg is present secondary to hemosiderin deposition. Arrangements will be made for the initiation of in-home lymphedema therapy. The patient has been referred for evaluation for repeat venous ablation on the left. 3. Chronic obstructive pulmonary disease. 4. 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 5. Hypothyroidism. 6. Arthritis. Job ID: [id number]
== END ==
LOC: CANPRECLI → WCC 10:18
PROVIDERS: ATTEND Family Medicine
DX: S81.801D Unspecified open wound, right lower leg, subsequent encounter (principal)
CPT/HCPCS: 29581; A4218

== ENCOUNTER 2018-10-29 08:55 | Outpatient (CLI) | payer MEDICARE ==
--- NOTE | 2018-10-29 11:11 | PRG ---
DATE OF SERVICE: 10/29/2018 HISTORY: Mr. Beni Aviles is a very pleasant 57-year-old gentleman, who presents to the wound center for evaluation of multiple venous ulcerations of the left lower leg. The patient has undergone venous ablation on two occasions in the past. The patient today reports less pain associated with his ulcerations. The patient has no other complaints today. He denies any fever or chills. PHYSICAL EXAMINATION: VITAL SIGNS: Temperature 97.5, pulse 59, respirations 17, blood pressure 155/82. EXTREMITIES: Four ulcerations of the left lower leg are present, which measure approximately 1.5 x 0.7 cm, 2.5 x 2.0 cm, 3.0 x 2.1 cm, and 3.0 x 5.5 cm. Granulation tissue is present within the margins of each wound. No purulent drainage is associated with any of the wounds. The cellulitis of the left lower leg is appreciated. No maceration of the skin of the periwound of any of the wounds is noted. The posterior tibial pulse is easily palpable on the left. No significant edema of the left foot or lower leg is present on exam today. ASSESSMENT AND PLAN: 1. Chronic venous hypertension with ulcerations, Silverlon, ABDs, Webril, and 3M Coban two layer compression system will be applied to the ulcerations today. I will see Mr. Aviles again in one week. 2. Lymphedema tarda, discoloration of the skin of the left lower leg is present, secondary to hemosiderin deposition. Arrangements will continue for the initiation of in-home lymphedema therapy. The patient has been referred for evaluation for repeat venous ablation on the left. 3. Chronic obstructive pulmonary disease. 4. 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 5. Hypothyroidism. 6. Arthritis. 7. Tobacco use. Job ID: [id number]
== END 2018-10-29 08:56 | disposition home or self-care (01) ==
LOC: WCC 08:55
PROVIDERS: ATTEND Family Medicine
DX: I87.312 Chronic venous hypertension (idiopathic) with ulcer of left lower extremity (principal); L97.929 Non-pressure chronic ulcer of unspecified part of left lower leg with unspecified severity; I89.0 Lymphedema, not elsewhere classified; J44.9 Chronic obstructive pulmonary disease, unspecified; E03.9 Hypothyroidism, unspecified; M19.90 Unspecified osteoarthritis, unspecified site; Z86.718 Personal history of other venous thrombosis and embolism; Z72.0 Tobacco use

== ENCOUNTER 2018-11-05 11:25 | Outpatient (CLI) | payer MEDICARE ==
--- NOTE | 2018-11-05 13:43 | PRG ---
DATE OF SERVICE: 11/05/2018 HISTORY: Mr. Beni Aviles is a very pleasant 57-year-old gentleman, who presents to the Wound Center for evaluation of multiple venous ulcerations of the left lower leg. The patient has undergone venous ablation on 2 occasions in the past. The patient states he has an appointment with Dr. Julien in the near future. The patient denies any fever or chills. PHYSICAL EXAMINATION: VITAL SIGNS: Temperature 97.8, pulse 80, respirations 17, and blood pressure 150/89. EXTREMITIES: Four ulcerations of the left lower leg are present, which measure approximately 0.8 x 0.6 cm, 3.4 x 2.0 cm, 3.0 x 2.2 cm, and 3.2 x 4.3 cm. Granulation tissue was present within the margins of each wound. No purulent drainage is associated with any of the wounds. No cellulitis of the left lower leg is appreciated. No maceration of the skin of the periwound of any of the wounds is noted. No significant edema of the left foot or lower leg is present on exam today. ASSESSMENT AND PLAN: 1. Chronic venous hypertension with ulcerations. Silverlon, ABDs, Webril, and 3M Coban 2 Layer Compression System will be applied to the ulcerations today. I will see Mr. Aviles again in 1 week. 2. Lymphedema tarda. Discoloration of the skin of the left lower leg is present secondary to hemosiderin deposition. Arrangements are being made for the initiation of in-home lymphedema therapy. As stated above, the patient has been referred for evaluation for repeat venous ablation on the left and has an appointment with Dr. Julien later this month. 3. Chronic obstructive pulmonary disease. 4. 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 5. Hypothyroidism. 6. Arthritis. 7. Tobacco use. Job ID: [id number]
== END 2018-11-05 11:26 | disposition home or self-care (01) ==
LOC: WCC 11:25
PROVIDERS: ATTEND Family Medicine
DX: I87.312 Chronic venous hypertension (idiopathic) with ulcer of left lower extremity (principal); L97.929 Non-pressure chronic ulcer of unspecified part of left lower leg with unspecified severity; I89.0 Lymphedema, not elsewhere classified; J44.9 Chronic obstructive pulmonary disease, unspecified; E03.9 Hypothyroidism, unspecified; M19.90 Unspecified osteoarthritis, unspecified site; Z86.718 Personal history of other venous thrombosis and embolism; Z72.0 Tobacco use
CPT/HCPCS: 29581; A4218

== ENCOUNTER 2018-11-12 10:49 | Outpatient (CLI) | payer MEDICARE ==
--- NOTE | 2018-11-12 12:19 | PRG ---
DATE OF SERVICE: 11/12/2018 HISTORY: Mr. Beni Aviles is a very pleasant 57-year-old gentleman, who presents to the Wound Center for evaluation of multiple venous ulcerations of the left lower leg. The patient previously stated that he has undergone venous ablation on 2 occasions in the past. The patient states that he has an appointment with Dr. Julien later today. Mr. Aviles has no complaints today. He denies any fever or chills. PHYSICAL EXAMINATION: VITAL SIGNS: Temperature 97.7, pulse 73, respirations 19, and blood pressure 137/85. EXTREMITIES: Three ulcerations of the left lower leg are present, which measure approximately 3.5 x 2.0 cm, 2.2 x 2.0 cm, and 3.0 x 5.0 cm. No purulent drainage is associated with any of the wounds. No cellulitis of the left lower leg is appreciated. No maceration of the skin of the karlee-wound of any of the wounds is noted. No significant edema of the left foot or lower leg is present on exam today. ASSESSMENT AND PLAN: 1. Chronic venous hypertension with ulcerations. Silverlon, ABDs, Webril, and the 3M Coban 2 Layer Compression System will be applied to the ulcerations today. I will see Mr. Aviles again in one week. 2. Lymphedema tarda. Discoloration of the skin of the left lower leg is present secondary to hemosiderin deposition. Arrangements are being made for the initiation of in-home lymphedema therapy. As stated above, the patient has an appointment with Dr. Julien later today for evaluation for repeat venous ablation on the left. 3. Chronic obstructive pulmonary disease. 4. 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 5. Hypothyroidism. 6. Arthritis. 7. Tobacco use. Job ID: [id number]
[2018-11-12] MEDS ORDERED: Sodium Chloride 0.9% 15 ML NEB ONE (15:00)
== END 2018-11-12 10:50 | disposition home or self-care (01) ==
LOC: WCC 10:49
PROVIDERS: ATTEND Family Medicine
DX: I87.312 Chronic venous hypertension (idiopathic) with ulcer of left lower extremity (principal); L97.929 Non-pressure chronic ulcer of unspecified part of left lower leg with unspecified severity; E03.9 Hypothyroidism, unspecified; J44.9 Chronic obstructive pulmonary disease, unspecified; I89.0 Lymphedema, not elsewhere classified; M19.90 Unspecified osteoarthritis, unspecified site; Z72.0 Tobacco use; Z86.718 Personal history of other venous thrombosis and embolism
CPT/HCPCS: 29581; A4218

== ENCOUNTER 2018-11-20 07:51 | Outpatient (CLI) | payer MEDICARE ==
--- NOTE | 2018-11-20 08:51 | PRG ---
DATE OF SERVICE: 11/20/2018 SUBJECTIVE: Beni Aviles is a very pleasant 57-year-old gentleman, who presents to the Wound Center for evaluation of multiple venous ulcerations of the left lower leg. Previously, the patient stated that he had undergone venous ablation on 2 occasions in the past. The patient has been seen by Dr. Julien. Mr. Aviles states that he is undergoing workup for repeat venous ablation on the left. Mr. Aviles has no complaints today. He denies any fever or chills. OBJECTIVE: VITAL SIGNS: Temperature 97.7, pulse 71, respirations 17, and blood pressure 158/75. EXTREMITIES: One ulceration of the left lower leg remains, the dimensions of the wound are approximately 2.1 x 1.4 cm. No purulent drainage is associated with the wound. No cellulitis of the left lower leg is appreciated. No maceration of the skin of the periwound is noted. No significant edema of the left foot or lower leg is present on exam today. Hyperpigmentation of the skin of the left lower leg is present secondary to hemosiderin deposition. ASSESSMENT AND PLAN: 1. Chronic venous hypertension with ulcerations. As stated above, only one ulceration remains. Silverlon, Webril, and the 3M 2-Layer compression system will be applied to the remaining ulceration. The patient is to report to the Wound Center in 1 week for a dressing change. I will see Mr. Aviles again in 2 weeks. 2. Lymphedema tarda. Arrangements will continue for the initiation of in-home lymphedema therapy. Patient continues to have lymphedema despite treatment with compression garments and compression wraps. 3. Chronic obstructive pulmonary disease. 4. 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 5. Hypothyroidism. 6. Arthritis. 7. Tobacco use. Job ID: [id number] [facility]
[2018-11-20] MEDS ORDERED: Sodium Chloride 0.9% 15 ML NEB ONE (15:00)
== END 2018-11-20 07:52 | disposition home or self-care (01) ==
LOC: WCC 07:51
PROVIDERS: ATTEND Family Medicine
DX: I87.312 Chronic venous hypertension (idiopathic) with ulcer of left lower extremity (principal); L97.929 Non-pressure chronic ulcer of unspecified part of left lower leg with unspecified severity; I89.0 Lymphedema, not elsewhere classified; J44.9 Chronic obstructive pulmonary disease, unspecified; E03.9 Hypothyroidism, unspecified; M19.90 Unspecified osteoarthritis, unspecified site; Z72.0 Tobacco use
CPT/HCPCS: 29581; A4218

== ENCOUNTER 2018-11-27 08:06 | Outpatient (CLI) | payer MEDICARE ==
[2018-11-27] MEDS ORDERED: Sodium Chloride 0.9% 15 ML NEB ONE (15:00)
== END 2018-11-27 08:07 | disposition home or self-care (01) ==
LOC: WCC 08:06
PROVIDERS: ATTEND Family Medicine
DX: I87.312 Chronic venous hypertension (idiopathic) with ulcer of left lower extremity (principal)
CPT/HCPCS: 29581; A4218

== ENCOUNTER 2018-12-04 10:03 | Outpatient (CLI) | payer MEDICARE ==
--- NOTE | 2018-12-04 10:56 | PRG ---
DATE OF SERVICE: 12/04/2018 HISTORY: Mr. Beni Aviles is a very pleasant 57-year-old gentleman, who presents to the Wound Center for evaluation of multiple venous ulcerations of the left lower leg. The patient previously stated that he had undergone venous ablation on 2 occasions in the past. The patient is being seen by Dr. Julien for workup for repeat venous ablation on the left. The patient has no complaints today. He denies any fever or chills. PHYSICAL EXAMINATION: VITAL SIGNS: Temperature 97.4, pulse 63, respirations 16, blood pressure 143/81. EXTREMITIES: One ulceration of the left lower leg remains, which measures approximately 1.6 x 1.0 cm. The dimensions of the wound at the time of the patient's last visit were approximately 2.1 x 1.4 cm. The wound is granulating. No purulent drainage is associated with the wound. No cellulitis of the left lower leg is appreciated. No maceration of the skin of the periwound is noted. No significant edema of the left foot or lower leg is present on exam today. Hyperpigmentation of the skin of the left lower leg is present secondary to hemosiderin deposition. ASSESSMENT AND PLAN: 1. Chronic venous hypertension with ulcerations. As stated above, only one ulceration remains. Silverlon, Webril, and the 3M Coban 2 Layer Compression System will be applied to the remaining ulceration. The patient is being seen by Dr. Julien for workup for repeat venous ablation on the left. I will see Mr. Aviles again in one week. 2. Lymphedema tarda. Arrangements will continue for the initiation of lymphedema therapy. The patient continues to have lymphedema despite treatment with compression garments and compression wraps. 3. Chronic obstructive pulmonary disease. 4. 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 5. Hypothyroidism. 6. Arthritis. 7. Tobacco use. The patient states that he has decreased his use of tobacco. Job ID: [id number]
[2018-12-04] MEDS ORDERED: Sodium Chloride 0.9% 15 ML NEB ONE (19:43)
== END 2018-12-04 10:04 | disposition home or self-care (01) ==
LOC: WCC 10:03
PROVIDERS: ATTEND Family Medicine
DX: I87.312 Chronic venous hypertension (idiopathic) with ulcer of left lower extremity (principal); L97.929 Non-pressure chronic ulcer of unspecified part of left lower leg with unspecified severity; I89.0 Lymphedema, not elsewhere classified; J44.9 Chronic obstructive pulmonary disease, unspecified; E03.9 Hypothyroidism, unspecified; M19.90 Unspecified osteoarthritis, unspecified site; Z86.718 Personal history of other venous thrombosis and embolism; Z72.0 Tobacco use
CPT/HCPCS: A4218

== ENCOUNTER 2018-12-18 09:02 | Outpatient (CLI) | payer MEDICARE ==
--- NOTE | 2018-12-18 10:16 | PRG ---
DATE OF SERVICE: 12/18/2018 SUBJECTIVE: Mr. Beni Aviles is a very pleasant 57-year-old gentleman, who presents to the wound center for evaluation of multiple venous ulcerations of the left lower leg. The patient previously stated that he had undergone venous ablation on 2 occasions in the past. The patient is being seen by Dr. Jacoby Julien for workup for repeat venous ablation on the left. The patient has no complaints today. He denies any fever or chills. OBJECTIVE: VITAL SIGNS: Temperature 97.5, pulse 59, respirations 16, and blood pressure 146/76. EXTREMITIES: The remaining ulceration of the left lower leg has healed completely. Pedal pulse is palpable on the left. No significant edema of the left foot or lower leg is present on exam today. Hyperpigmentation of the skin of the left lower leg is present secondary to hemosiderin deposition. ASSESSMENT AND PLAN: 1. Chronic venous hypertension with ulcerations. As stated above, the remaining ulceration has healed completely. Webril and the 3M Coban 2 Layer Compression System will be applied to the left foot and lower leg today. The patient is being seen by Dr. Julien for workup for repeat venous ablation on the left. I will see Mr. Aviles again in 1 week. 2. Lymphedema tarda. Arrangements will continue for the initiation of lymphedema therapy. The patient continues to have lymphedema despite treatment with compression garments and compression wraps. 3. Chronic obstructive pulmonary disease. 4. 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 5. Hypothyroidism. 6. Arthritis. 7. Tobacco use. Job ID: [id number]
[2018-12-18] MEDS ORDERED: Sodium Chloride 0.9% 15 ML NEB ONE ×2 (15:55→19:58)
== END 2018-12-18 09:03 | disposition home or self-care (01) ==
LOC: WCC 09:02
PROVIDERS: ATTEND Family Medicine
DX: I87.302 Chronic venous hypertension (idiopathic) without complications of left lower extremity (principal); I89.0 Lymphedema, not elsewhere classified; J44.9 Chronic obstructive pulmonary disease, unspecified; E03.9 Hypothyroidism, unspecified; M19.90 Unspecified osteoarthritis, unspecified site; Z72.0 Tobacco use; Z86.718 Personal history of other venous thrombosis and embolism; Z87.2 Personal history of diseases of the skin and subcutaneous tissue
CPT/HCPCS: 29581; A4218

== ENCOUNTER 2019-10-21 12:08 | Outpatient (CLI) | payer MEDICARE ==
--- NOTE | 2019-10-21 13:44 | ULT ---
BLADDER ULTRASOUND: INDICATIONS: History of hematuria. COMPARISON: None. FINDINGS: The pre-void bladder volume was 145 mL. The post-void bladder volume was 50 mL. No intraluminal mass is evident. IMPRESSION: 1. Pre and post bladder volumes as above. 2. No intraluminal mass identified. POS: TPC
== END 2019-10-21 12:09 | disposition home or self-care (01) ==
LOC: BICULT 12:08
PROVIDERS: ATTEND Nurse Practitioner Family
DX: R31.9 Hematuria, unspecified (principal); F17.290 Nicotine dependence, other tobacco product, uncomplicated
CPT/HCPCS: 76856

== ENCOUNTER 2019-10-26 08:54 | Outpatient (CLI) | payer MEDICARE ==
--- NOTE | 2019-10-26 10:19 | PRG ---
DATE OF SERVICE: 10/26/2019 HISTORY: Mr. Beni Aviles is a very pleasant 58-year-old gentleman who presents to the Wound Center for multiple venous ulcerations of the left lower leg. The patient has undergone venous ablation on 2 occasions in the past. At the time of the patient's last visit, the patient stated that he was being seen by Dr. Jacoby Julien for workup for repeat venous ablation on the left. The patient states that since his visit on 12/18/2018, he has been on his feet more and has also traveled to [place] 3 times, which may have contributed to the recurrent ulcerations of the left lower leg. At the time of the patient's visit on 12/18/2018, all ulcerations of the left lower leg had healed completely. Mr. Aviles has no other complaints today. He denies any fever or chills. PHYSICAL EXAMINATION: VITAL SIGNS: Temperature 97.5, pulse 115, respirations 19, and blood pressure 187/103. EXTREMITIES: Three ulcerations of the left lower leg are present, which measure approximately 2.5 x 2.7 cm, 2.5 x 2.0 cm, and 3.2 x 1.8 cm. No purulent drainage is associated with any of the wounds. No cellulitis of the left lower leg is appreciated. No maceration of the skin of the periwound of any of the wounds is noted. A dorsalis pedis pulse and posterior tibial pulse are both palpable on the left. No significant edema of the left foot or lower leg is appreciated on today's exam. Hyperpigmentation of the skin of the left lower leg is present secondary to hemosiderin deposition. ASSESSMENT AND PLAN: 1. Chronic venous hypertension with ulcerations. Silverlon, Webril, and the 3M Coban 2 Layer Compression System will be applied to the ulcerations today. I will see Mr. Aviles again in 1 week. Arrangements will be made for the patient to be seen by Dr. Julien again for evaluation for repeat venous ablation on the left. 2. Lymphedema tarda. Arrangements will be made for the home delivery of wraparound compression. The patient declines in-home lymphedema therapy with a pneumatic pump. 3. Chronic obstructive pulmonary disease. 4. 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 5. Hypothyroidism. 6. Arthritis. 7. Tobacco use. Job ID: [id number]
[2019-10-26] MEDS ORDERED: Sodium Chloride 0.9% 15 ML NEB ONE (16:43)
[2019-10-26] MEDS ORDERED: Lidocaine 2% PF 100 mg/5 ml Syringe ONE (16:43)
== END 2019-10-26 08:55 | disposition home or self-care (01) ==
LOC: WCC 08:54
PROVIDERS: ATTEND Family Medicine
DX: I87.312 Chronic venous hypertension (idiopathic) with ulcer of left lower extremity (principal); L97.929 Non-pressure chronic ulcer of unspecified part of left lower leg with unspecified severity; I89.0 Lymphedema, not elsewhere classified; J44.9 Chronic obstructive pulmonary disease, unspecified; E03.9 Hypothyroidism, unspecified; M19.90 Unspecified osteoarthritis, unspecified site; Z72.0 Tobacco use; Z86.718 Personal history of other venous thrombosis and embolism
CPT/HCPCS: A4218; J2001

== ENCOUNTER 2020-03-25 08:09 | Outpatient (CLI) | payer MEDICARE ==
--- NOTE | 2020-03-25 08:33 | RAD ---
Exam:Left ankle 3 views HISTORY: Patient dropped log on foot and ankle. Visible bruising and wound. COMPARISON: None FINDINGS: Atherosclerosis is noted. There is extensive soft tissue swelling. Possible subcutaneous em physema. Correlate for cellulitis. Possible remote lateral malleolus fracture. IMPRESSION: 1. Probable remote injury involving the distal fibula/lateral malleolus. 2. Soft tissue swelling and possible subcutaneous emphysema. Correlate for cellulitis.
--- NOTE | 2020-03-25 08:34 | RAD ---
Exam:Left foot 3 views HISTORY: Pain. Patient dropped log on foot in December 2019. Bruising. Evaluate for fracture. COMPARISON: None FINDINGS: Lisfranc alignment is maintained. Preserved joint spaces. No fracture, cortical irregularit y or periosteal reaction. There is soft tissue swelling. There may be some subcutaneous emphysema. Correlate for cellulitis. IMPRESSION: 1. No fracture 2. Soft tissue swelling with possible subcutaneous emphysema. Correlate for cellulitis.
== END 2020-03-25 08:10 | disposition home or self-care (01) ==
LOC: BICRAD 08:09
PROVIDERS: ATTEND Specialist
DX: M79.672 Pain in left foot (principal); M79.89 Other specified soft tissue disorders

== ENCOUNTER 2020-09-21 12:37 | Observation (INO) | payer MEDICARE, OTHER ==
[~2020-09-21 12:37] MED LIST changes: +Iopamidol-370 76% 500 ML 1 ML ONE; -Sodium Chloride 0.9% 15 ML NEB ONE
--- NOTE | 2020-09-21 13:47 | RAD ---
EXAM: CHEST ONE VIEW HISTORY: Nausea and vomiting. Abdominal cramping. Shortness of breath and bodyaches. COMPARISON: None FINDINGS: Cardiac silhouette is magnified by projection and patient rotation but does appear mildly enlarged. T here is increased density in the right hilar region which may be secondary to accentuation of the right hilar structures including vasculature. Lungs are clear. Vascular calcifications are seen in th e thoracic aorta. Osseous structures are grossly intact. IMPRESSION: Increased density right hilar region most likely attributable to patient rotation to the right which accentuates the mediastinal and hilar structures. However, follow-up PA and lateral chest x-ray is recommended.
[2020-09-21 13:57] LABS: #Lymphocytes 0.9 thou/uL (1.20-3.40); #Monocytes 0.6 thou/uL (0.11-0.59); #Neutrophils 10.1 thou/uL (1.40-6.50); %Basophils 0.4 % (0.0-1.0); %Eosinophils 0.2 % (0.0-10.0); %Lymphocytes 7.9 % (21.0-51.0); %Monocytes 4.9 % (0.0-10.0); %Neutrophils 86.6 % (42.0-75.0); Hemoglobin 13.7 g/dL (14.0-18.0); Mean Corpuscular HGB CONC 32.7 g/dL (32.0-36.0); Mean Corpuscular Volume 82.7 fL (78.0-98.0); Mean Platelet Volume 9.5 fL (7.4-10.4); Platelet Count 143 thou/uL (130-400); RBC Distribution Width 16.6 % (11.5-14.5); Red Blood Cell (RBC) Count 5.06 mill/uL (4.70-6.10); White Blood Cell (WBC) Count 11.7 thou/uL (4.8-10.8)
[2020-09-21 14:21] LABS: ALT (SGPT) 24 U/L (8-55); AST (SGOT) 29 U/L (5-34); Albumin 3.9 g/dL (3.5-5.0); Alkaline Phosphatase 69 U/L (40-110); Anion Gap 19 mmol/L (10-20); BUN (Urea Nitrogen) 27 mg/dL (8.4-25.7); Bilirubin, Total 0.7 mg/dL (0.2-1.2); Calc. Creatinine Clearance 0 mL/min (70-130); Calcium 9.3 mg/dL (7.8-10.44); Carbon Dioxide 15 mmol/L (22-29); Chloride 104 mmol/L (98-107); Estimated GFR-MDRD 42; Globulin 3.2 g/dL (2.4-3.5); Glucose 124 mg/dL (70-105); Protein, Total 7.1 g/dL (6.0-8.3); Sodium 134 mmol/L (136-145)
[2020-09-21] MEDS ORDERED: Acetaminophen 500 MG TAB ONE (15:04)
[2020-09-21 15:15] LABS: INR-International Normal Ratio 1.3; Prothrombin Time 16.1 sec (12.0-14.7)
[2020-09-21 15:16] LABS: PTT 26.9 sec (22.9-36.1)
--- NOTE | 2020-09-21 17:05 | CT ---
CT OF THE CHEST AND ABDOMEN WITH IV CONTRAST AND 3D POSTPROCESSING USING THE AORTIC DISSECTION PROTOC OL: 09/21/20 FINDINGS: There are vascular calcifications with a 3.5 cm infrarenal abdominal aortic aneurysm. Extensive plaqu e is seen within the aneurysm. 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 No intimal flap is seen in the thoracoabdominal aorta to suggest dissection. No pleural or pericardial effusions are seen. There are chronic changes in the lung payne with lower lobe dominance. A moderate sized hiatal hernia is present. Multiple cysts are seen in the liver, the largest measurin g about 14 mm in the inferior aspect of the right lobe. No calcified gallstones are noted. The spleen and left kidney are unremarkable. There is a 2 cm indeterminate right adrenal nodule. There are multiple tiny calcifications in the pancreas and multiple cystic lesions measuring up to 11 mm. There is a nonobstructing 4 mm calculus in the right kidney. There is a 3.5 cm cortical cyst arising from the left kidney. There are smaller low density lesions in the kidneys too small to characterize and measure up to 8 mm on the right and 1 cm on the left. There is decreased attenuation in the super ior cortex of the right kidney which without significant perinephric inflammatory changes. This sugge sts this may likely represent an infarction and less likely pyelonephritis. A posterior bladder diver ticulum is present. the prostate is mildly enlarged. No free air, free fluid or lymphadenopathy is seen in the abdomen or pelvis. No mediastinal, hilar or axillary mass or lymphadenopathy is seen. Multilevel degenerative changes are seen in the thoracolumbar spine. IMPRESSION: 1. No CT evidence of periaortic dissection. 2. A 3.5 cm abdominal aortic aneurysm. 3. 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 4. Hepatic cysts. 5. Indeterminate 2 cm right adrenal nodule. 6. Nonobstructing right renal calculus. 7. Left renal cyst. 8. Indeterminate bilateral renal lesions. 9. Nonobstructing 4 mm right renal calculus. 10. Infarction of the superior aspect of the right kidney (more likely) versus pyelonephritis (l ess likely). Correlation with urinalysis is recommended. 11. Chronic pancreatitis with multiple pancreatic cystic lesions. 12. Prostatic enlargement. 13. Urinary bladder diverticulum. 14. Evaluation of the adrenal, renal and pancreatic findings with MRI (with and without IV contr ast) is recommended. 15. Moderate sized hiatal hernia. POS: OFF
[2020-09-21] MEDS ORDERED: Ondansetron PF 4 MG/2 ML Vial ONE (17:24)
[2020-09-21] MEDS ORDERED: Morphine 4 MG/ML VIAL ONE (17:24)
[2020-09-21 18:47] LABS: Bacteria/HPF None Seen HPF (None Seen); Bilirubin Negative (Negative); Blood, Urine Trace (Negative); Clarity Clear (Clear); Glucose, Urine (Dipstick) Normal (Negative); Ketone, Urine 10 mg/dL (Negative); Leukocyte Negative Leu/uL (Negative); Nitrite Negative (Negative); Protein, Urine (Dipstick) 30 mg/dL (Neg-Trace); RBC/HPF 0-3 HPF (0-3); Specific Gravity, Urine 1.022 (1.002-1.036); Squamous Epithelial None Seen HPF (0-3); Urobilinogen Normal mg/dL (Less than 2); WBC/HPF 0-3 HPF (0-3); pH, Urine 5.5 (5.0-9.0)
[2020-09-21 20:30] LABS: SARS-CoV-2 MS2 Positive; SARS-CoV-2 N Gene Negative; SARS-CoV-2 S Gene Negative; SARS-CoV-2 by NAA Not Detected (NotDetected); SARS-CoV-2 orf1ab Negative
[2020-09-21] MEDS ORDERED: Lorazepam 2 MG/ML VIAL ONE (21:46)
[2020-09-21 22:57] VITALS: BMI 25.9
[2020-09-21] MEDS ORDERED: Acetaminophen/Codeine 30-300mg Tablet PO PRN (23:06)
[2020-09-21] MEDS ORDERED: Lorazepam 1 MG TAB PO PRN (23:06)
[2020-09-21] MEDS ORDERED: Ondansetron PF 4 MG/2 ML Vial IVP PRN (23:15)
[2020-09-21] MEDS ORDERED: Ondansetron ODT 4 MG TAB SL PRN (23:15)
[2020-09-22] MEDS ORDERED: Diazepam 5 MG TAB PO PRN (00:05)
[2020-09-22] MEDS ORDERED: Thiamine HCl 200 MG/2 ML VIAL IM SCH (00:15)
[2020-09-22] MEDS ORDERED: Diazepam 5 MG TAB PO SCH (00:15)
[2020-09-22] MEDS: Sodium Chloride 0.9% 1,000 ML IV SCH ×5 (00:21→23:51)
[2020-09-22] MEDS ORDERED: Mirtazapine 30 MG TAB PO SCH ×2 (00:45→21:00)
[2020-09-22 00:53] LABS: Amphetamine Not Detected (NotDetected); Benzodiazepine Screen Not Detected (NotDetected); Cocaine Metabolite Screen Not Detected (NotDetected); Medtox Reader # READER 4; Methadone Not Detected (NotDetected); Methamphetamine Not Detected (NotDetected); Opiate Screen Detected (NotDetected); Phencyclidine (PCP) Not Detected (NotDetected); THC/Cannabinoid Screen Detected (NotDetected); Tricyclic Screen Not Detected (NotDetected)
[2020-09-22 00:54] LABS: Barbiturates Screen Not Detected (NotDetected); Medtox Control Line Valid? VALID (VALID); Oxycodone Screen Not Detected (NotDetected)
[2020-09-22] MEDS: Levothyroxine Sodium 25 MCG TAB PO SCH (06:01)
[2020-09-22 06:50] LABS: #Basophils 0.1 thou/uL (0.0-0.2); #Monocytes 0.6 thou/uL (0.11-0.59); #Neutrophils 6.4 thou/uL (1.40-6.50); %Basophils 0.6 % (0.0-1.0); %Eosinophils 0.4 % (0.0-10.0); %Lymphocytes 12.2 % (21.0-51.0); %Monocytes 7.4 % (0.0-10.0); %Neutrophils 79.4 % (42.0-75.0); Hemoglobin 12.5 g/dL (14.0-18.0); Mean Corpuscular HGB CONC 32.3 g/dL (32.0-36.0); Mean Corpuscular Hemoglobin 26.5 pg (27.0-31.0); Mean Platelet Volume 9.6 fL (7.4-10.4); Platelet Count 142 thou/uL (130-400); RBC Distribution Width 16.4 % (11.5-14.5); Red Blood Cell (RBC) Count 4.73 mill/uL (4.70-6.10); White Blood Cell (WBC) Count 8.1 thou/uL (4.8-10.8)
[2020-09-22 06:54] LABS: Anion Gap 13 mmol/L (10-20); BUN (Urea Nitrogen) 26 mg/dL (8.4-25.7); Calc. Creatinine Clearance 59 mL/min (70-130); Carbon Dioxide 22 mmol/L (22-29); Chloride 107 mmol/L (98-107); Estimated GFR-MDRD 42; Glucose 106 mg/dL (70-105); Potassium 3.8 mmol/L (3.5-5.1); Sodium 138 mmol/L (136-145)
[2020-09-22] MEDS: Rosuvastatin 20 MG TAB PO SCH (09:03)
[2020-09-22] MEDS: Multivitamin W/ Minerals 1 TAB PO SCH (09:03)
[2020-09-22] MEDS: Folic Acid 1 MG TAB PO SCH (09:03)
[2020-09-22] MEDS: DULoxetine 60 MG CAP PO SCH (09:03)
[2020-09-22] MEDS: Acetaminophen/Codeine 30-300mg Tablet PO PRN ×2 (09:05→19:16)
[2020-09-22] MEDS: Lorazepam 1 MG TAB PO PRN ×2 (09:06→18:12)
--- NOTE | 2020-09-22 09:35 | RAD ---
XR Chest Pa Lat STANDARD HISTORY: Chest pain COMPARISON: Previous day FINDINGS: The heart size is normal. The aorta is tortuous. The lungs are well expanded without focal areas of consolidation, pneumothorax or pleural effusions. A hiatal hernia is present. IMPRESSION: No radiographic evidence of acute cardiopulmonary process.
--- NOTE | 2020-09-22 09:48 | CON ---
DATE OF CONSULTATION: 09/22/2020 HISTORY OF PRESENT ILLNESS: Mr. Aviles is a 59-year-old white male, who reported to the emergency room complaining of feeling bad. He has been having nausea and vomiting, cramping as well as lightheadedness. During the initial workup, a CT scan of the abdomen was done, which was suggestive of right upper pole renal infarct. Vascular Surgery has been consulted. Recommendation by Radiology is MRI with and without contrast of the abdomen. We are now being consulted for his acute kidney injury on top of a ? of chronic renal failure. REVIEW OF SYSTEMS: Positive for nausea and vomiting. Positive for decreased p.o. intake. No chest pain or shortness of breath. No fever or chills. Appetite is decreased. Positive for abdominal cramping. Positive for right flank pain. No shortness of breath. No gross hematuria. No dysuria. No urinary frequency. No hematochezia. No melena. Positive for myalgia. No diplopia. HOME MEDICATIONS: Include; 1. Coumadin 5 mg tablet once a day. 2. Levothyroxine 25 mcg daily. 3. Duloxetine 60 mg tablet once a day. PAST MEDICAL HISTORY: History of recurrent left leg DVT, DJD, depression, hypothyroidism, chronic left leg ulceration. PAST SURGICAL HISTORY: Status post appendectomy, status post tonsillectomy, status post left upper extremity surgery for fracture, status post left ankle reconstruction. SOCIAL HISTORY: The patient still smokes about 3 cigarettes a day for the last several years. Alcohol intake of less than 5 drinks per day. He uses marijuana, but denies IV drug abuse. Originally from [place] ? currently lives in the [facility]. ALLERGIES: NO KNOWN DRUG ALLERGIES. TRAUMA: Status post left ankle injury. IMMUNIZATIONS: Unknown. HOSPITALIZATIONS: Please see past medical history. FAMILY HISTORY: Noncontributory. PHYSICAL EXAMINATION: VITAL SIGNS: Blood pressure is 167/72, heart rate 83, respiratory rate 18, temperature 98, and O2 saturation 95%. GENERAL: The patient is awake, comfortable, not in overt distress. SKIN: Adequate turgor. HEENT: He has pinkish conjunctivae. Anicteric sclerae. NECK: No neck mass. No carotid bruits. No JVD. CHEST: No deformities. LUNGS: Clear breath sounds. No wheezing. No crackles. HEART: Normal sinus rhythm. No murmur. No gallops. No rubs. ABDOMEN: Globular, soft, and nontender. No masses. Positive for bowel sounds. Negative for epigastric bruits. EXTREMITIES: Positive for edema. Positive for left leg swelling. NEUROLOGICAL: Moving all extremities. No tremors. No asterixis. No ataxia. LABORATORY DATA: On September 22, 2020; white count 8.1, hemoglobin 12.5. Sodium 138, potassium 3.8, chloride 107, carbon dioxide 22, BUN 26, creatinine 1.68, GFR 42 mL/minute, glucose 106, and calcium 9. TSH 2.5. On September 21, 2020, creatinine 1.69. On June 14, 2020, creatinine 1.4. On March 02, 2019, creatinine is 1.2. Urinalysis of September 21, 2020, specific gravity 1.022, protein is 30, no red cells, no white cells, no pigmented granular cast. Chest x-ray of September 21, 2020, no overt CHF. On September 21, 2020, CT scan of the abdomen and pelvis, no CT evidence of para-aortic dissection. There was an incidental finding of a 3.5-cm abdominal aortic aneurysm. At the same time, there was a 1.7-cm right common iliac aneurysm with near occluding plaque/thrombosis, finding of a hepatic cyst. In addition, there is a 2-cm right adrenal nodule. There are also indeterminate bilateral renal lesions. There is a nonobstructing 4-mm right renal calculus. Infarction of the superior aspect of the right kidney is considered. Also findings of chronic pancreatitis. Recommendation MRI with and without contrast. ASSESSMENT AND PLAN: 1. Acute kidney injury on top of his chronic renal failure ? - consider superimposed hemodynamically-mediated renal dysfunction. The urinalysis showed a very concentrated urine. No evidence of acute tubular necrosis or acute glomerulonephritis. Agree with empiric volume repletion. Currently, on normal saline. There is no indication for any dialytic intervention with this patient. 2. Right renal infarct ? - Vascular Surgery has been consulted. An MRI of the abdomen and pelvis with contrast has been recommended. I think the patient can proceed with MRI with and without contrast since the GFR is about 42 mL/minute. Overall, agree with current management. Recheck basic metabolic panel and CBC in a.m. Job ID: [id number]
[2020-09-22 09:51] LABS: Syphilis Antibody Nonreactive (Nonreactive); Syphilis Antibody Index 0.06 S/CO (<1.00 Non-Reactive)
--- NOTE | 2020-09-22 10:26 | HP ---
CHIEF COMPLAINT ON ADMISSION: Right renal infarct. HISTORY OF PRESENT ILLNESS: The patient is a 59-year-old male who has been having generalized aches and pains, nausea, vomiting, fever (subjectively) since getting his flu shot. He has had general anxiety, stating that this just hurts all over. When he came to the emergency room, he would feel lightheaded on standing, but has not passed out. Would feel short of breath, but denies chest pain or headaches or sore throat. In the emergency room during his evaluation, CT was obtained, which showed multiple issues, but the most concerning being right cortical infarct of his right kidney, and he is put in the hospital for further evaluation of that. PAST MEDICAL HISTORY: Significant for DVT, COPD, dyslipidemia, GERD, hypothyroidism, arthritis, peripheral vascular disease with stasis dermatitis of the lower extremities. PAST SURGICAL HISTORY: Includes appendectomy, tonsillectomy, left upper extremity surgery for fracture, and left ankle reconstruction. PAST PSYCHIATRIC HISTORY: Significant for depression and anxiety. SOCIAL HISTORY: He has a history of smoking and alcohol consumption. MEDICATIONS ON ADMISSION: Include: 1. Coumadin 5 mg once a day. 2. Levothyroxine 25 mcg p.o. daily. 3. Duloxetine 60 mg once a day. 4. Protonix once a day. 5. Rosuvastatin 20 mg daily. 6. Chlorzoxazone 500 mg p.o. p.r.n. muscle spasms. 7. Occasional Tylenol No. 3 for general arthritic complaints. ALLERGIES: HE HAS NO KNOWN DRUG ALLERGIES. REVIEW OF SYSTEMS: CONSTITUTIONALLY: Admits to fatigue, subjective fever, and dyspnea. HEENT: No drainage from eyes, ears, nose, or throat. CHEST: Admits to dyspnea with occasional cough. CARDIOVASCULAR: Denies palpitations or chest pain. GI: Complains of nausea, vomiting, but no diarrhea. : Denies blood in urine or stool or dysuria. MUSCULOSKELETAL: Has generalized aches and pains in ankles and knees and shoulders. NEUROLOGIC: Denies headaches, blurred vision, trouble with mentation. PSYCHIATRICALLY: He is emotional, crying, and anxious. PHYSICAL EXAMINATION: VITAL SIGNS: Blood pressure is 167/72, pulse is 83, temperature 98.0, O2 saturation 95% on room air, respirations 18 per minute, and he weighs 197 pounds. GENERAL: This is a disheveled male, alert, oriented, cooperative. HEENT: Normocephalic, atraumatic. Pupils are equal, round, and reactive to light. Extraocular muscles are intact. TMs, nares, and pharynx are clear. NECK: Supple. Trachea midline. CHEST: With mildly diminished breath sounds. HEART: Regular rate and rhythm. No murmur. ABDOMEN: Soft with mild hepatomegaly. Nontender at the time of exam. : Deferred. EXTREMITIES: Without clubbing, cyanosis, or edema. Symmetrical muscular wasting noted in upper and lower extremities. SKIN: Dystrophic changes noted in bilateral lower extremities with discoloration and subcutaneous atrophy. NEUROLOGIC: Cranial nerves are intact. Mental status is significant for anxiety. Gait and cerebellar function intact. Sensory exam is grossly intact. LABORATORY WORK: Thus far shows WBCs at 8, hemoglobin 12.5, hematocrit 38.8, and platelets at 142. PT is 16.1, INR 1.3, and APTT 26.9. Sodium 138, potassium 3.8, chloride 107, CO2 of 22, BUN 26, creatinine 1.67 with a GFR of 42, glucose 106. Liver functions unremarkable. Troponin I is unremarkable. TSH at 2.5. Urinalysis shows ketones at 10, trace blood, 30 protein. Tox screen showed detected opiates and cannabis. Serology is SARS negative. Chest x-ray severely rotated, it fails to show significance. The CT scan shows possible right cortical renal infarct, 3.5-cm aortic aneurysm, 1.7-cm common iliac aneurysm with nearly occluding plaque/thrombus/embolus. Nonobstructing right renal calculus at 4 mm. Evidence of chronic pancreatitis with multiple pancreatic cyst. BPH. Bladder diverticulum. Moderate-sized hiatal hernia. ASSESSMENT: 1. Right renal infarct. 2. Generalized anxiety disorder. 3. Possible alcohol withdrawal. 4. Chronic obstructive pulmonary disease. 5. Dehydration. PLAN: 1. Will be IV resuscitation. 2. Will be MRI of his abdomen emphasize to the right renal blood flow and pancreas. 3. ASE protocol to prevent DTs. 4. Serial re-evaluation. 5. Consultation of Nephrology and vascular surgeon for opinions on possible revascularization/stent placement. Job ID: [id number] [facility]
--- NOTE | 2020-09-22 10:39 | MRI ---
MRI ABDOMEN WITH AND WITHOUT IV CONTRAST: Date: 09/22/2020 HISTORY: Abnormal CT scan from previous day. FINDINGS: A moderate sized hiatal hernia is present. The spleen is enlarged measuring 14.3 cm in length. There are multiple cysts in the liver. No abnormal biliary ductal dilatation is seen. The gallbladder and l eft adrenal gland are normal. There is a 2.0 cm right adrenal nodule with signal loss on the out of phase images consistent with be nign adenoma. There is a wedge-shaped nonenhancing area in the superior pole of the right kidney consistent with in farction. Multiple bilateral renal cysts are present. There is a filling defect/thrombus at the origi n of the right renal artery. A 3.5 cm abdominal aortic aneurysm is again seen with mural thrombus. Numerous cysts are seen in the pancreas, the largest measuring about 2.0 cm at the anterior aspect of the head of the pancreas. No abnormal pancreatic ductal dilatation is seen. No free fluid or lymphadenopathy is identified. There are degenerative changes in the spine. IMPRESSION: 1. Moderate sized hiatal hernia. 2. Hepatic cysts. 3. Splenomegaly. 4. Right adrenal adenoma. 5. Bilateral renal cysts. 6. Infarction in the superior pole of the right kidney. 7. Thrombus/plaque at the origin of the right renal artery. 8. Numerous pancreatic cysts measuring up to 2.0 cm. A follow-up MRI is recommended in 6 months. 9. A 3.5 cm abdominal aortic aneurysm CODE T POS: [facility]
--- NOTE | 2020-09-22 10:54 | CON ---
DATE OF CONSULTATION: 09/22/2020 HISTORY OF PRESENT ILLNESS: Mr. Aviles presented through the emergency department with approximately 3 days of not feeling well at home. He has been on Coumadin at home for DVT. As part of his workup, he had a CT scan of the abdomen performed. This showed a small right renal apical infarct. He has a 3.5-cm abdominal aortic aneurysm with thrombus extending up towards the right renal artery. The patient has no history of aneurysm. He has no family history of aneurysm. He does smoke 1 to 2 packs of cigarettes a day. He also has a significant alcohol use history. PAST MEDICAL HISTORY: 1. DVT. 2. COPD. 3. History of chronic pancreatitis. 4. Dyslipidemia. 5. Hypertension. 6. GERD. 7. Hypothyroidism. 8. Peripheral vascular disease with stasis dermatitis of bilateral lower extremities. PAST SURGICAL HISTORY: 1. Appendectomy. 2. Tonsillectomy. 3. ORIF of left arm. SOCIAL HISTORY: He uses significant amount of tobacco and alcohol. ALLERGIES: NONE. CURRENT MEDICATIONS: 1. Coumadin 5 mg daily. 2. Levothyroxine 25 mcg daily. 3. Duloxetine 60 mg daily. 4. Protonix 40 mg daily. 5. Crestor 20 mg daily. REVIEW OF SYSTEMS: A 10-point review of systems was performed and was negative except as above. PHYSICAL EXAMINATION: GENERAL: A very pleasant, chronically ill-appearing gentleman, resting comfortably on the oncology unit. VITAL SIGNS: Height is 6 feet 1 inch, weight is 197 pounds, BSA is 2.15. Temperature is 98.0, pulse is 83 and regular, and blood pressure is 160/74. HEENT: Sclerae nonicteric. Pupils are equal and round bilaterally. NECK: Supple without bruit. CHEST: Clear bilaterally. HEART: Rhythm is regular. ABDOMEN: Soft. It is tender in the right flank. He has no palpable abdominal mass. EXTREMITIES: No cyanosis, clubbing, or edema. DIAGNOSTIC STUDIES: I have reviewed his CT scan and findings were as above. ASSESSMENT AND PLAN: 1. Right renal infarct. The patient should remain anticoagulated on Coumadin for his deep vein thrombosis. I would add aspirin to his home regimen for anti-platelet effect. 2. Abdominal aortic aneurysm. I will follow him up in the office in 3 to 4 months for an ultrasound and will follow him chronically. There is no surgical therapy indicated at this point. Job ID: [id number]
[2020-09-22 11:29] LABS: INR-International Normal Ratio 1.5; PTT 35.9 sec (22.9-36.1)
[2020-09-22] MEDS ORDERED: Magnevist 469MG/ML 20 ML VIAL ONE (14:51)
[2020-09-23] MEDS: Acetaminophen/Codeine 30-300mg Tablet PO PRN (03:55)
[2020-09-23] MEDS ORDERED: Diazepam 5 MG TAB PO PRN (04:00)
[2020-09-23] MEDS: Lorazepam 1 MG TAB PO PRN (04:24)
[2020-09-23 06:19] LABS: #Lymphocytes 1.6 thou/uL (1.20-3.40); #Monocytes 0.7 thou/uL (0.11-0.59); #Neutrophils 5.9 thou/uL (1.40-6.50); %Basophils 0.4 % (0.0-1.0); %Eosinophils 0.4 % (0.0-10.0); %Lymphocytes 19.6 % (21.0-51.0); %Monocytes 8.7 % (0.0-10.0); %Neutrophils 70.9 % (42.0-75.0); Hemoglobin 11.7 g/dL (14.0-18.0); Mean Corpuscular HGB CONC 31.9 g/dL (32.0-36.0); Mean Corpuscular Hemoglobin 26.1 pg (27.0-31.0); Mean Corpuscular Volume 81.8 fL (78.0-98.0); Mean Platelet Volume 9.3 fL (7.4-10.4); Platelet Count 129 thou/uL (130-400); RBC Distribution Width 16.6 % (11.5-14.5); White Blood Cell (WBC) Count 8.4 thou/uL (4.8-10.8)
[2020-09-23] MEDS: Levothyroxine Sodium 25 MCG TAB PO SCH (06:24)
[2020-09-23] MEDS: Sodium Chloride 0.9% 1,000 ML IV SCH (06:27)
[2020-09-23 06:37] LABS: Anion Gap 13 mmol/L (10-20); BUN (Urea Nitrogen) 21 mg/dL (8.4-25.7); Calc. Creatinine Clearance 69 mL/min (70-130); Calcium 8.9 mg/dL (7.8-10.44); Carbon Dioxide 22 mmol/L (22-29); Chloride 108 mmol/L (98-107); Estimated GFR-MDRD 50; Glucose 99 mg/dL (70-105); Potassium 4.2 mmol/L (3.5-5.1); Sodium 139 mmol/L (136-145)
[2020-09-23 08:32] VITALS: BP 143/89; TEMP 98.2
[2020-09-23] MEDS: Folic Acid 1 MG TAB PO SCH (08:34)
[2020-09-23] MEDS: Rosuvastatin 20 MG TAB PO SCH (08:34)
[2020-09-23] MEDS: DULoxetine 60 MG CAP PO SCH (08:34)
[2020-09-23] MEDS: Multivitamin W/ Minerals 1 TAB PO SCH (08:35)
[2020-09-23] MEDS ORDERED: Thiamine 100 MG TAB PO SCH (09:00)
[2020-09-23] MEDS ORDERED: Magnesium Oxide 400 MG TAB PO SCH (09:00)
[2020-09-23] MEDS ORDERED: Aspirin 81 mg Enteric Coated Tablet PO SCH (09:00)
--- NOTE | 2020-09-23 09:46 | PRG ---
DATE OF SERVICE: 09/23/2020 SUBJECTIVE: Mr. Aviles is a 59-year-old white male, who came in with right flank pain. Imaging of the right kidney showed infarct of the right upper pole. He has been evaluated by Surgery. The feeling is that he is not a surgical candidate. He has had this pain on and off for quite some time. He was also noted to be in acute kidney injury on top of a possible chronic renal failure due to volume depletion. IV hydration has been given with improvement of the renal function. This morning, he has no new complaints. The flank pain is actually better. No complaints of chest pain or shortness of breath. OBJECTIVE: VITAL SIGNS: Blood pressure 143/89, heart rate 103, respiratory rate 16, temperature 98.2, O2 saturation 94%. GENERAL: Awake, alert, comfortable, sitting, not in distress. SKIN: Adequate turgor. HEENT: Pinkish conjunctivae. Anicteric sclerae. No neck mass. No carotid bruits. No JVD. CHEST: No deformities. LUNGS: Clear breath sounds. No wheezing. No crackles. HEART: Normal sinus rhythm. No murmur. No gallops. No rubs. ABDOMEN: Globular, soft, nontender. No masses. EXTREMITIES: No edema. No deformities. MEDICATIONS: Of September 23, 2020, were reviewed. LABORATORY DATA: Laboratories of September 23, 2020: White count 8.4, hemoglobin 11.7. Sodium 139, potassium 4.2, chloride 108, carbon dioxide 22, BUN 21, creatinine 1.44. Glucose 99, calcium 8.9. MRI of the abdomen shows right renal infarct, right upper pole of the kidney. ASSESSMENT AND PLAN: 1. Right upper pole renal infarct - this is most likely chronic based on the patient's symptoms. No surgical intervention recommended by Vascular Surgery. Management, supportive care. 2. Acute kidney injury on top of possible chronic renal failure - superimposed prerenal azotemia. The patient's creatinine is much improved with IV hydration. There is no indication for any dialytic intervention. If the patient gets discharged today, he was given instruction to follow up at the [facility], which he will try to comply with according to the patient. Overall agree with current management. Job ID: [id number]
== END 2020-09-23 11:10 | disposition home or self-care (01) ==
LOC: ERS 12:37 → INTOOBSV 19:58 → ONC 19:58
PROVIDERS: ADMIT Specialist; ATTEND Specialist
DX: N28.0 Ischemia and infarction of kidney (principal); N17.9 Acute kidney failure, unspecified; E86.0 Dehydration; I71.4 Abdominal aortic aneurysm, without rupture; F41.1 Generalized anxiety disorder; F32.9 Major depressive disorder, single episode, unspecified; F17.210 Nicotine dependence, cigarettes, uncomplicated; L97.529 Non-pressure chronic ulcer of other part of left foot with unspecified severity; K86.1 Other chronic pancreatitis; E78.5 Hyperlipidemia, unspecified; K21.9 Gastro-esophageal reflux disease without esophagitis; E03.9 Hypothyroidism, unspecified; I73.9 Peripheral vascular disease, unspecified; K44.9 Diaphragmatic hernia without obstruction or gangrene; K76.89 Other specified diseases of liver; N28.1 Cyst of kidney, acquired; K86.2 Cyst of pancreas; Z79.01 Long term (current) use of anticoagulants; Z79.899 Other long term (current) drug therapy; Z20.828 Contact with and (suspected) exposure to other viral communicable diseases
CPT/HCPCS: 71045; 71046; 71275; 74174; 74183; 80048 ×2; 80306; 82248; 84484; 85025 ×2; 85610 ×2; 85730 ×2; 86780; 87086; 87804 ×2; 93005; 94760; 96365; 96366; 96372; 96375; 99285; G0378 ×4; U0003; 36415; 80053; 81003; 81015; 84443; 87635; 96374; A9579; J2060; J2270; J2405; J3411; J3475; J3490; Q9967

== ENCOUNTER 2021-02-07 19:58 | Inpatient (IN) | payer MEDICARE ==
[2021-02-07 20:35] LABS: #Basophils 0.1 thou/uL (0.0-0.2); #Eosinphils 0.1 thou/uL (0.0-0.7); #Lymphocytes 2.3 thou/uL (1.20-3.40); #Monocytes 0.9 thou/uL (0.11-0.59); #Neutrophils 13.5 thou/uL (1.40-6.50); %Basophils 0.6 % (0.0-1.0); %Eosinophils 0.4 % (0.0-10.0); %Lymphocytes 13.5 % (21.0-51.0); %Monocytes 5.3 % (0.0-10.0); %Neutrophils 80.2 % (42.0-75.0); Hemoglobin 14.3 g/dL (14.0-18.0); Mean Corpuscular HGB CONC 32.3 g/dL (32.0-36.0); Mean Corpuscular Hemoglobin 27.6 pg (27.0-31.0); Mean Corpuscular Volume 85.3 fL (78.0-98.0); Mean Platelet Volume 8.7 fL (7.4-10.4); Platelet Count 247 thou/uL (130-400); RBC Distribution Width 15.7 % (11.5-14.5); Red Blood Cell (RBC) Count 5.19 mill/uL (4.70-6.10); White Blood Cell (WBC) Count 16.9 thou/uL (4.8-10.8)
[2021-02-07 20:57] LABS: ALT (SGPT) 12 U/L (8-55); AST (SGOT) 14 U/L (5-34); Albumin 4.2 g/dL (3.4-4.8); Alkaline Phosphatase 65 U/L (40-110); Anion Gap 22 mmol/L (10-20); BUN (Urea Nitrogen) 24 mg/dL (8.4-25.7); Bilirubin, Total 0.8 mg/dL (0.2-1.2); Calc. Creatinine Clearance 0 mL/min (70-130); Calcium 9.7 mg/dL (7.8-10.44); Carbon Dioxide 18 mmol/L (23-31); Chloride 103 mmol/L (98-107); Globulin 2.6 g/dL (2.4-3.5); Glucose 156 mg/dL (80-115); Lipase 43 U/L (8-78); Protein, Total 6.8 g/dL (5.8-8.1); Sodium 139 mmol/L (136-145)
[2021-02-07 21:32] LABS: SARS-CoV-2 NAA Rapid Test Not Detected (NotDetected)
[2021-02-07 21:58] LABS: INR-International Normal Ratio 1.6; PTT 28.2 sec (22.9-36.1); Prothrombin Time 19.4 sec (12.0-14.7)
[2021-02-07] MEDS ORDERED: Ondansetron PF 4 MG/2 ML Vial ONE (21:58)
[2021-02-07] MEDS ORDERED: Cefepime 2 GM VIAL ONE (22:34)
[2021-02-07] MEDS ORDERED: Vancomycin 1 GM/200 ML BAG ONE (22:34)
[2021-02-07 22:36] LABS: Acetaminophen Less than 6.0 mcg/mL (10.0-30.0); Alcohol 39 mg/dL (Less than 10)
[2021-02-07 22:38] LABS: Salicylate Less than 8.0 mg/dL (15.0-30.0)
[2021-02-07 23:02] LABS: Bilirubin Negative (Negative); Blood, Urine Negative (Negative); Clarity Clear (Clear); Glucose, Urine (Dipstick) Normal (Negative); Ketone, Urine 10 mg/dL (Negative); Leukocyte Negative Leu/uL (Negative); Nitrite Negative (Negative); Protein, Urine (Dipstick) 20 mg/dL (Neg-Trace); Specific Gravity, Urine 1.023 (1.002-1.036); Urobilinogen Normal mg/dL (Less than 2); pH, Urine 6.5 (5.0-9.0)
[2021-02-07 23:13] LABS: Benzodiazepine Screen Detected (NotDetected); Cocaine Metabolite Screen Not Detected (NotDetected); Medtox Reader # READER 4; Methamphetamine Not Detected (NotDetected); Phencyclidine (PCP) Not Detected (NotDetected); THC/Cannabinoid Screen Detected (NotDetected)
[2021-02-07 23:14] LABS: Amphetamine Not Detected (NotDetected); Barbiturates Screen Not Detected (NotDetected); Medtox Control Line Valid? VALID (VALID); Methadone Not Detected (NotDetected); Opiate Screen Not Detected (NotDetected); Oxycodone Screen Not Detected (NotDetected); Tricyclic Screen Not Detected (NotDetected)
[2021-02-07] MEDS ORDERED: Promethazine HCl 25 MG/ML VIAL ONE (23:14)
[2021-02-08] MEDS ORDERED: Morphine 4 MG/ML VIAL ONE (00:47)
[2021-02-08] MEDS ORDERED: Ondansetron PF 4 MG/2 ML Vial ONE (00:47)
[2021-02-08 00:58] LABS: Lactic Acid 2.4 mmol/L (0.5-2.2)
[2021-02-08] MEDS ORDERED: Metoclopramide HCl 10 MG/2 ML VIAL ONE (02:53)
[2021-02-08 03:04] LABS: Troponin I Less than 0.010 ng/mL (< 0.028)
[2021-02-08] MEDS ORDERED: Lorazepam 2 MG/ML VIAL ONE ×2 (03:07→03:08)
[2021-02-08] MEDS ORDERED: Sodium Chloride 0.9% 1,000 ML IV SCH (05:15)
[2021-02-08] MEDS ORDERED: Ondansetron ODT 4 MG TAB SL PRN (05:15)
[2021-02-08] MEDS ORDERED: Ondansetron PF 4 MG/2 ML Vial IVP PRN ×2 (05:15→08:27)
[2021-02-08] MEDS ORDERED: Acetaminophen 325 MG TAB PO PRN (05:15)
[2021-02-08 05:16] VITALS: BMI 23.9
[2021-02-08] MEDS ORDERED: Cefepime 2 GM in Sodium Chloride 0.9% 100 ML IVPB SCH (06:00)
[2021-02-08 06:17] LABS: Troponin I Less than 0.010 ng/mL (< 0.028)
[2021-02-08] MEDS ORDERED: Diphenoxylate HCl/Atropine Tablet PO PRN (08:27)
[2021-02-08] MEDS ORDERED: Diphenoxylate HCl/Atropine Tablet PO SCH (08:30)
[2021-02-08] MEDS ORDERED: Ondansetron PF 4 MG/2 ML Vial IVP SCH (08:30)
[2021-02-08] MEDS: Sodium Chloride 0.9% 1,000 ML IV SCH ×2 (08:52→17:40)
[2021-02-08] MEDS ORDERED: Vancomycin 1 GM in Premix Bag 1 BAG IVPB SCH (09:00)
[2021-02-08] MEDS: Pantoprazole 40 MG VIAL IVP SCH (09:29)
[2021-02-08] MEDS: Aspirin Chewable 81 MG TAB PO SCH (09:36)
[2021-02-08] MEDS: Acetaminophen 325 MG TAB PO SCH ×4 (09:36→20:43)
[2021-02-08] MEDS: DULoxetine 60 MG CAP PO SCH (09:37)
[2021-02-08] MEDS: Bisoprolol Fumarate 5 MG TAB PO SCH (09:37)
[2021-02-08] MEDS: Cefepime 2 GM in Sodium Chloride 0.9% 100 ML IVPB SCH ×2 (13:41→22:30)
[2021-02-08] MEDS: Warfarin Sodium 5 MG TAB PO SCH (17:40)
[2021-02-08] MEDS ORDERED: Vancomycin 1.5 GRAM/300 ML BAG 1.5 GM in Premix Bag 1 BAG IVPB SCH (21:00)
[2021-02-09] MEDS: Acetaminophen 325 MG TAB PO SCH ×2 (03:22→06:31)
[2021-02-09] MEDS: Sodium Chloride 0.9% 1,000 ML IV SCH ×3 (03:26→21:00)
[2021-02-09 05:30] LABS: INR-International Normal Ratio 2.1; Prothrombin Time 24.3 sec (12.0-14.7)
[2021-02-09] MEDS: Cefepime 2 GM in Sodium Chloride 0.9% 100 ML IVPB SCH (06:55)
[2021-02-09] MEDS: Levothyroxine Sodium 25 MCG TAB PO SCH (06:55)
[2021-02-09] MEDS ORDERED: Acetaminophen 325 MG TAB PO PRN (07:54)
[2021-02-09] MEDS: DULoxetine 60 MG CAP PO SCH (08:35)
[2021-02-09] MEDS: Pantoprazole 40 MG VIAL IVP SCH (08:35)
[2021-02-09] MEDS: Aspirin Chewable 81 MG TAB PO SCH (08:35)
[2021-02-09] MEDS: Bisoprolol Fumarate 5 MG TAB PO SCH (08:35)
[2021-02-09] MEDS: Lorazepam 1 MG TAB PO PRN ×2 (15:38→21:08)
[2021-02-09] MEDS: Warfarin Sodium 5 MG TAB PO SCH (17:56)
[2021-02-09] MEDS: Amoxicillin/Potassium Clav 875 MG TAB PO SCH (17:56)
[2021-02-10 05:35] LABS: #Basophils 0.1 thou/uL (0.0-0.2); #Eosinphils 0.1 thou/uL (0.0-0.7); #Lymphocytes 1.9 thou/uL (1.20-3.40); #Monocytes 0.5 thou/uL (0.11-0.59); #Neutrophils 4.3 thou/uL (1.40-6.50); %Basophils 1.2 % (0.0-1.0); %Eosinophils 1.1 % (0.0-10.0); %Lymphocytes 27.7 % (21.0-51.0); %Monocytes 7.8 % (0.0-10.0); %Neutrophils 62.2 % (42.0-75.0); Hemoglobin 12.8 g/dL (14.0-18.0); Mean Corpuscular Hemoglobin 27.6 pg (27.0-31.0); Mean Corpuscular Volume 86.1 fL (78.0-98.0); Mean Platelet Volume 8.4 fL (7.4-10.4); Platelet Count 165 thou/uL (130-400); RBC Distribution Width 15.4 % (11.5-14.5); Red Blood Cell (RBC) Count 4.63 mill/uL (4.70-6.10)
[2021-02-10] MEDS: Levothyroxine Sodium 25 MCG TAB PO SCH (05:36)
[2021-02-10] MEDS: Sodium Chloride 0.9% 1,000 ML IV SCH ×2 (05:36→05:45)
[2021-02-10 05:47] LABS: INR-International Normal Ratio 1.6; Prothrombin Time 19.3 sec (12.0-14.7)
[2021-02-10 05:57] LABS: Anion Gap 9 mmol/L (10-20); BUN (Urea Nitrogen) 15 mg/dL (8.4-25.7); Calc. Creatinine Clearance 77 mL/min (70-130); Calcium 8.4 mg/dL (7.8-10.44); Carbon Dioxide 25 mmol/L (23-31); Chloride 109 mmol/L (98-107); Glucose 88 mg/dL (80-115); Potassium 3.7 mmol/L (3.5-5.1); Sodium 139 mmol/L (136-145)
[2021-02-10 08:00] VITALS: BP 154/94
[2021-02-10 08:02] VITALS: TEMP 97.5
[2021-02-10] MEDS: DULoxetine 60 MG CAP PO SCH (11:03)
[2021-02-10] MEDS: Aspirin Chewable 81 MG TAB PO SCH (11:03)
[2021-02-10] MEDS: Bisoprolol Fumarate 5 MG TAB PO SCH (11:03)
[2021-02-10] MEDS: Amoxicillin/Potassium Clav 875 MG TAB PO SCH (11:04)
[2021-02-10] MEDS: Pantoprazole 40 MG VIAL IVP SCH (11:05)
== END 2021-02-10 11:12 | disposition home or self-care (01) | DRG 917 ==
LOC: ERS 19:58 → 2SE 02-08 02:17 → OBSVTOIN 02-08 07:50
PROVIDERS: ADMIT Specialist; ATTEND Specialist
DX: T40.7X1A Poisoning by cannabis (derivatives), accidental (unintentional), initial encounter (principal); G92 Toxic encephalopathy; R78.81 Bacteremia; Z20.822 Contact with and (suspected) exposure to COVID-19; J44.9 Chronic obstructive pulmonary disease, unspecified; I10 Essential (primary) hypertension; E03.9 Hypothyroidism, unspecified; M19.90 Unspecified osteoarthritis, unspecified site; I87.2 Venous insufficiency (chronic) (peripheral); F10.20 Alcohol dependence, uncomplicated; F41.9 Anxiety disorder, unspecified; F32.9 Major depressive disorder, single episode, unspecified; F17.210 Nicotine dependence, cigarettes, uncomplicated; E78.5 Hyperlipidemia, unspecified; K21.9 Gastro-esophageal reflux disease without esophagitis; F19.10 Other psychoactive substance abuse, uncomplicated; E86.0 Dehydration; Z86.718 Personal history of other venous thrombosis and embolism; Z79.01 Long term (current) use of anticoagulants; Z79.899 Other long term (current) drug therapy; Z90.49 Acquired absence of other specified parts of digestive tract
CPT/HCPCS: 0240U; 36415; 70450; 71045; 71046; 71275; 74177; 80048; 80053; 80306; 80307; 81003; 82010; 83605; 83690; 84484; 85025; 85379; 85610; 85730; 87040; 87149; 93005; 94760; 96365; 96367; 96375; 96376; C9113; G0378; J0692; J2060; J2270; J2405; J2550; J2765; J3370; J3490; Q9967

== ENCOUNTER 2022-04-23 17:07 | Emergency (ER) | payer MEDICARE ==
[2022-04-23 18:03] LABS: Bilirubin Negative (Negative); Blood, Urine Negative (Negative); Clarity Clear (Clear); Glucose, Urine (Dipstick) Normal (Negative); Ketone, Urine Negative (Negative); Leukocyte Negative Leu/uL (Negative); Nitrite Negative (Negative); Protein, Urine (Dipstick) Negative (Neg-Trace); Specific Gravity, Urine 1.012 (1.002-1.036); Urobilinogen Normal mg/dL (Less than 2)
[2022-04-23 18:11] LABS: Amphetamine Not Detected (NotDetected); Barbiturates Screen Not Detected (NotDetected); Benzodiazepine Screen Detected (NotDetected); Cocaine Metabolite Screen Not Detected (NotDetected); Methadone Not Detected (NotDetected); Methamphetamine Not Detected (NotDetected); Opiate Screen Not Detected (NotDetected); Oxycodone Screen Not Detected (NotDetected); Phencyclidine (PCP) Not Detected (NotDetected); THC/Cannabinoid Screen Detected (NotDetected); Tricyclic Screen Not Detected (NotDetected)
[2022-04-23] MEDS ORDERED: Boostrix 0.5 ML (Tdap) VIAL ONE (18:11)
[2022-04-23] MEDS ORDERED: Lorazepam 1 MG TAB ONE (18:11)
[2022-04-23 18:30] LABS: #Basophils 0.1 thou/uL (0.0-0.2); #Eosinphils 0.1 thou/uL (0.0-0.7); #Lymphocytes 1.4 thou/uL (1.20-3.40); #Monocytes 0.5 thou/uL (0.11-0.59); %Basophils 1.2 % (0.0-1.0); %Eosinophils 1.3 % (0.0-10.0); %Lymphocytes 23.7 % (21.0-51.0); %Monocytes 7.5 % (0.0-10.0); %Neutrophils 66.3 % (42.0-75.0); Hemoglobin 12.1 g/dL (14.0-18.0); Mean Corpuscular HGB CONC 31.1 g/dL (32.0-36.0); Mean Corpuscular Hemoglobin 27.5 pg (27.0-31.0); Mean Corpuscular Volume 88.4 fL (78.0-98.0); Mean Platelet Volume 8.2 fL (7.4-10.4); Platelet Count 194 thou/uL (130-400); RBC Distribution Width 17.4 % (11.5-14.5)
[2022-04-23 18:48] LABS: Acetaminophen Less than 10.0 mcg/mL (10.0-30.0); Alcohol 18 mg/dL (Less than 10); Salicylate Less than 8.0 mg/dL (15.0-30.0)
[2022-04-23 18:49] LABS: ALT (SGPT) 19 U/L (8-55); AST (SGOT) 24 U/L (5-34); Albumin 3.4 g/dL (3.4-4.8); Alkaline Phosphatase 39 U/L (40-110); Anion Gap 12 mmol/L (10-20); BUN (Urea Nitrogen) 18 mg/dL (8.4-25.7); CK (CPK) 191 U/L (30-200); Calc. Creatinine Clearance 0 mL/min (70-130); Calcium 8.5 mg/dL (7.8-10.44); Carbon Dioxide 18 mmol/L (23-31); Chloride 109 mmol/L (98-107); Globulin 2.3 g/dL (2.4-3.5); Glucose 77 mg/dL (80-115); Potassium 4.2 mmol/L (3.5-5.1); Protein, Total 5.7 g/dL (5.8-8.1); Sodium 135 mmol/L (136-145)
[2022-04-24 01:41] LABS: SARS-CoV-2 NAA Rapid Test Not Detected (NotDetected)
[2022-04-24 03:22] LABS: INR-International Normal Ratio 1.6; PTT 31.7 sec (22.9-36.1); Prothrombin Time 19.7 sec (12.0-14.7)
[2022-04-24] MEDS ORDERED: Lorazepam 1 MG TAB ONE (04:40)
[2022-04-24] MEDS ORDERED: Warfarin Sodium 5 MG TAB PO SCH (09:00)
[2022-04-24] MEDS ORDERED: DULoxetine 60 MG CAP PO SCH (09:00)
== END 2022-04-24 08:14 ==
LOC: ERS 17:07
DX: T14.91XA Suicide attempt, initial encounter (principal); I10 Essential (primary) hypertension; E03.9 Hypothyroidism, unspecified; E78.5 Hyperlipidemia, unspecified; J44.9 Chronic obstructive pulmonary disease, unspecified; F17.210 Nicotine dependence, cigarettes, uncomplicated; Z20.822 Contact with and (suspected) exposure to COVID-19; Z79.01 Long term (current) use of anticoagulants; Z79.890 Hormone replacement therapy; Z79.899 Other long term (current) drug therapy; Z86.718 Personal history of other venous thrombosis and embolism
CPT/HCPCS: 70498; 80306; 80307; 81003; 82550; 85610; 85730; 90471; 90715; 93005; 99285; U0002; 36415; 80053; 84443; 85025; Q9967

== ENCOUNTER 2022-06-12 13:59 | Emergency (ER) | payer MEDICARE ==
[2022-06-12 14:27] LABS: #Eosinphils 0.1 thou/uL (0.0-0.7); #Lymphocytes 1.3 thou/uL (1.20-3.40); #Monocytes 0.6 thou/uL (0.11-0.59); #Neutrophils 4.2 thou/uL (1.40-6.50); %Basophils 0.4 % (0.0-1.0); %Eosinophils 1.1 % (0.0-10.0); %Lymphocytes 20.8 % (21.0-51.0); %Monocytes 10.2 % (0.0-10.0); %Neutrophils 67.5 % (42.0-75.0); Hemoglobin 10.8 g/dL (14.0-18.0); Mean Corpuscular HGB CONC 31.7 g/dL (32.0-36.0); Mean Corpuscular Volume 88.2 fL (78.0-98.0); Mean Platelet Volume 7.8 fL (7.4-10.4); Platelet Count 201 thou/uL (130-400); RBC Distribution Width 17.5 % (11.5-14.5); Red Blood Cell (RBC) Count 3.86 mill/uL (4.70-6.10); White Blood Cell (WBC) Count 6.3 thou/uL (4.8-10.8)
[2022-06-12 14:37] LABS: Bilirubin Negative (Negative); Blood, Urine Negative (Negative); Clarity Clear (Clear); Glucose, Urine (Dipstick) Normal (Negative); Ketone, Urine Negative (Negative); Leukocyte 25 Leu/uL (Negative); Nitrite Negative (Negative); Protein, Urine (Dipstick) 20 mg/dL (Neg-Trace); RBC/HPF 0-3 HPF (0-3); Specific Gravity, Urine 1.014 (1.002-1.036); Squamous Epithelial 0-3 HPF (0-3); Urobilinogen Normal mg/dL (Less than 2); pH, Urine 5.5 (5.0-9.0)
[2022-06-12 14:38] LABS: Bacteria/HPF Rare-Few HPF (None Seen)
[2022-06-12 14:49] LABS: ALT (SGPT) 13 U/L (8-55); AST (SGOT) 18 U/L (5-34); Albumin 3.2 g/dL (3.4-4.8); Alkaline Phosphatase 60 U/L (40-110); Anion Gap 13 mmol/L (10-20); BUN (Urea Nitrogen) 12 mg/dL (8.4-25.7); Bilirubin, Total 0.7 mg/dL (0.2-1.2); Calc. Creatinine Clearance 0 mL/min (70-130); Calcium 8.2 mg/dL (7.8-10.44); Carbon Dioxide 24 mmol/L (23-31); Chloride 107 mmol/L (98-107); Estimated GFR 59; Globulin 2.4 g/dL (2.4-3.5); Glucose 101 mg/dL (80-115); Potassium 3.3 mmol/L (3.5-5.1); Protein, Total 5.6 g/dL (5.8-8.1); Sodium 141 mmol/L (136-145)
[2022-06-12] MEDS ORDERED: Potassium Chloride 20 MEQ TAB ONE (15:32)
== END 2022-06-12 17:21 | disposition home or self-care (01) ==
LOC: ERS 13:59
DX: T67.9XXA Effect of heat and light, unspecified, initial encounter (principal); R53.1 Weakness; M25.551 Pain in right hip; M25.561 Pain in right knee; E87.6 Hypokalemia; I10 Essential (primary) hypertension; E03.9 Hypothyroidism, unspecified; E78.5 Hyperlipidemia, unspecified; J44.9 Chronic obstructive pulmonary disease, unspecified; F17.210 Nicotine dependence, cigarettes, uncomplicated; W19.XXXA Unspecified fall, initial encounter; Z86.718 Personal history of other venous thrombosis and embolism
CPT/HCPCS: 36415; 71045; 80053; 81003; 81015; 82550; 84484; 85025; 93005; 94760

== ENCOUNTER 2022-10-05 18:19 | Emergency (ER) | payer MEDICARE ==
[2022-10-05 19:17] LABS: #Basophils 0.1 thou/uL (0.0-0.2); #Eosinphils 0.1 thou/uL (0.0-0.7); #Lymphocytes 2.2 thou/uL (1.20-3.40); #Monocytes 0.7 thou/uL (0.11-0.59); #Neutrophils 4.6 thou/uL (1.40-6.50); %Basophils 0.8 % (0.0-1.0); %Lymphocytes 28.6 % (21.0-51.0); %Monocytes 8.7 % (0.0-10.0); %Neutrophils 60.8 % (42.0-75.0); Mean Corpuscular HGB CONC 31.7 g/dL (32.0-36.0); Mean Corpuscular Hemoglobin 27.7 pg (27.0-31.0); Mean Corpuscular Volume 87.6 fl (78.0-98.0); Platelet Count 202 10x3/uL (130-400); RBC Distribution Width 16.5 % (11.5-14.5); Red Blood Cell (RBC) Count 4.67 mill/uL (4.70-6.10); White Blood Cell (WBC) Count 7.6 10x3/uL (4.8-10.8)
[2022-10-05 19:32] LABS: ALT (SGPT) 24 U/L (8-55); AST (SGOT) 40 U/L (5-34); Albumin 4.3 g/dL (3.4-4.8); Alkaline Phosphatase 70 U/L (40-110); Anion Gap 12 mmol/L (10-20); BUN (Urea Nitrogen) 22 mg/dL (8.4-25.7); Bilirubin, Total 1.2 mg/dL (0.2-1.2); CK (CPK) 302 U/L (30-200); Calc. Creatinine Clearance 0 mL/min (70-130); Calcium 9.5 mg/dL (7.8-10.44); Carbon Dioxide 22 mmol/L (23-31); Chloride 112 mmol/L (98-107); Estimated GFR 54; Globulin 3.2 g/dL (2.4-3.5); Glucose 83 mg/dL (80-115); Protein, Total 7.5 g/dL (5.8-8.1); Sodium 142 mmol/L (136-145)
[2022-10-05 19:33] LABS: Acetaminophen Less than 10.0 mcg/mL (10.0-30.0); Alcohol 164 mg/dL (Less than 10); Salicylate Less than 8.0 mg/dL (15.0-30.0)
[2022-10-05] MEDS ORDERED: hydrOXYzine 25 MG TAB ONE (19:36)
[2022-10-05 19:52] LABS: Bilirubin Negative (Negative); Blood, Urine Negative (Negative); Clarity Clear (Clear); Glucose, Urine (Dipstick) Normal (Negative); Ketone, Urine Negative (Negative); Leukocyte Negative Leu/uL (Negative); Nitrite Negative (Negative); Protein, Urine (Dipstick) Negative (Neg-Trace); Specific Gravity, Urine 1.009 (1.002-1.036); Urobilinogen Normal mg/dL (Less than 2)
[2022-10-05 19:57] LABS: Amphetamine Not Detected (NotDetected); Barbiturates Screen Not Detected (NotDetected); Benzodiazepine Screen Detected (NotDetected); Cocaine Metabolite Screen Not Detected (NotDetected); Methadone Not Detected (NotDetected); Methamphetamine Not Detected (NotDetected); Opiate Screen Not Detected (NotDetected); Oxycodone Screen Not Detected (NotDetected); Phencyclidine (PCP) Not Detected (NotDetected); THC/Cannabinoid Screen Detected (NotDetected); Tricyclic Screen Not Detected (NotDetected)
[2022-10-06] MEDS ORDERED: hydrOXYzine 25 MG TAB ONE (07:36)
[2022-10-06] MEDS ORDERED: Diazepam 5 MG TAB ONE (19:42)
[2022-10-06 23:15] LABS: SARS-CoV-2 NAA Rapid Test Not Detected (NotDetected)
[2022-10-07] MEDS ORDERED: hydrOXYzine Pamoate 25 mg Capsule ONE ×2 (07:17)
[2022-10-07] MEDS ORDERED: Acetaminophen 500 MG TAB ONE (07:17)
[2022-10-07] MEDS ORDERED: Nicotine 14 MG PATCH ONE (08:57)
== END 2022-10-07 09:42 ==
LOC: ERS 18:19
DX: R45.851 Suicidal ideations (principal); F10.129 Alcohol abuse with intoxication, unspecified; F12.10 Cannabis abuse, uncomplicated; Z20.822 Contact with and (suspected) exposure to COVID-19; Z86.718 Personal history of other venous thrombosis and embolism; F17.210 Nicotine dependence, cigarettes, uncomplicated; E03.9 Hypothyroidism, unspecified
CPT/HCPCS: 73630; 80053; 80306; 80307 ×2; 81003; 82550; 85025; 93005; U0002; 36415; Q0177